=== PATIENT | female | born 1945 | race Caucasian/White ===

== ENCOUNTER 2023-11-16 05:55 | Observation (INO) | payer MEDICARE, SELFPAY ==
[2023-11-16] VITALS (15 sets, daily range): BP systolic 99–143; BP diastolic 43–79; PULSE 74–100; RESP 15–28; TEMP 36.9–37.2; O2SAT 93–100; BMI 23.0
--- NOTE | ~2023-11-16 | XR_ITS ---
EXAMINATION: XR chest 2V DATE: 11/19/2023 12:17 INDICATION: Pneumonia TECHNIQUE: PA and lateral views of the chest were obtained. COMPARISON: Chest radiograph dated 11/18/2023 FINDINGS: Again seen is an increased interstitial pattern and subtle patchy airspace opacities in the left mid and lower lung zones which appears primarily anterior to the major fissures in the upper lobes, lingu la and right middle lobe. Blunting at the bilateral posterior sulci consistent with small bilateral p leural effusions, left greater than right. There are some adjacent posterior bibasilar atelectasis. S ize is normal. Moderate thoracic and upper lumbar spondylosis with chronic mild anterior wedging of a couple mid thoracic vertebral bodies. IMPRESSION: 1. Persistent interstitial and airspace opacities in the bilateral mid to lower lungs, predominantly anteriorly most suggestive of pneumonia versus less likely atelectasis or mild pulmonary edema. 2. Small bilateral pleural effusions with mild bibasilar atelectasis. Reviewed, dictated and finalized at location A. IMPRESSION: 1. Persistent interstitial and airspace opacities in the bilateral mid to lower lungs, predominantly anteriorly most suggestive of pneumonia versus less likel y atelectasis or mild pulmonary edema. 2. Small bilateral pleural effusions with mild bibasilar atelectasis.
--- NOTE | ~2023-11-16 | XR_ITS ---
XR chest 2V Ordering provider: Ayo Morgan MD History: 78 years Female with . pneumonia . Comparison: November 16, 2023 FINDINGS: MEDIASTINUM: The cardiac silhouette is not enlarged. Prominent romelia. LUNGS: Minimal left pleural effusion. No pneumothorax. Prominent bronchovascular markings. Atelectasi s versus pneumonia in the lower lobes is not excluded. Opacification in the left perihilar area which may indicate early pneumonia. Underlying fibrotic and emphysematous changes are noted. OTHER: No free air under the diaphragm. Degenerative changes of the spine. IMPRESSION: Left pleural effusion. Prominent bilateral bronchovascular markings with Bibasilar atelectasis versus pneumonia. Opacificati on the left perihilar area suggestive of pneumonia. Reviewed, dictated and finalized at location A. IMPRESSION: Left pleural effusion. Prominent bilateral bronchovascular markings with Bibasilar atelectasis versus pneumonia. Opacification the left perihilar area suggestive of pneumonia.
--- NOTE | ~2023-11-16 | XR_ITS ---
EXAMINATION: XR chest 2V DATE: 11/16/2023 06:24 INDICATION: Right-sided chest pain. Cough. TECHNIQUE: Frontal and lateral views of the chest were obtained. COMPARISON: Chest 2 views 11/27/2011, CT abdomen and pelvis 09/25/2017 FINDINGS: There is mild scarring at the lung apices. There are patchy airspace opacities in right mid lung zone and left mid and lower lung zones. No pleural effusion or pneumothorax. The heart size is n ormal. IMPRESSION: 1. Patchy airspace opacities in right midlung zone and left mid and lower lung zones, consistent with pneumonia. Reviewed, dictated and finalized at location A.
--- NOTE | 2023-11-16 05:56 | ECG_ITS ---
Test Date: 2023-11-16 06:05:51 Measurements Intervals [place] Rate: 103 P: 5 [place]: 122 QRS: 0 QRSD: 131 T: -1 QT: 360 QTc: 473 Interpretive Statements SINUS TACHYCARDIA WITH FREQUENT ECTOPIC PREMATURE COMPLEXES RIGHT BUNDLE BRANCH BLOCK ABNORMAL ECG No previous ECG available for comparison Electronically Signed On 11-16-2023 07:45:16 CDT by Lázaro Allan D.O.
[2023-11-16 06:17] LABS: Basophils Absolute Auto 0.1 K/mm3 (0.0-0.1); Basophils Percent Auto 0.2 % (0.2-1.2); Eosinophils Absolute Auto 0.1 K/mm3 (0-0.3); Eosinophils Percent Auto 0.5 % (0-4.4); Hematocrit 40.5 % (37.0-47.0); Hemoglobin 13.6 g/dL (12.0-15.0); Immature Granulocyte Absolute 0.16 K/mm3 (0.00-0.031); Immature Granulocyte Percent A 0.7 % (0-0.5); Lymphocytes Absolute Auto 0.93 K/mm3 (0.9-3.2); Lymphocytes Percent Auto 4.3 % (18.3-44.2); Mean Corpuscular HGB Conc 33.6 g/dl (32-36); Mean Corpuscular Hemoglobin 31.3 pg (26-34); Mean Corpuscular Volume 93.1 fl (80-100); Mean Platelet Volume 8.9 fl (7.4-10.4); Monocytes Absolute Auto 1.4 K/mm3 (0.1-0.6); Monocytes Percent Auto 6.6 % (2.6-8.5); Neutrophils Absolute Auto 18.9 K/mm3 (1.3-6.7); Neutrophils Percent Auto 87.7 % (45.5-73.1); Platelet Count Result 204 k/mm3 (150-375); Red Blood Count 4.35 M/mm3 (4.2-5.4); Red Cell Distribution Width 13.2 % (11.5-14.5); White Blood Count 21.6 K/mm3 (4.5-10.0)
[2023-11-16 06:29] LABS: Alanine Aminotransferase 51 U/L (6-35); Albumin Level 3.8 g/dL (3.5-5.1); Alkaline Phosphatase 105 U/L (38-126); Anion Gap 10 mmol/L (4-12); Aspartate Amino Transferase 48 U/L (14-36); Bilirubin,Total 0.9 mg/dL (0.2-1.3); Blood Urea Nitrogen 14 mg/dL (7-17); Calcium 9.1 mg/dL (8.4-10.2); Carbon Dioxide 23 mmol/L (22-30); Chloride 104 mmol/L (98-107); Estimated CRCL calculation 48 ml/min; Estimated Glomerular Filt Rate > 60; Glucose 134 mg/dL (65-110); Lipase 58 U/L (23-300); Potassium 3.9 mmol/L (3.4-5.0); Sodium 137 mmol/L (137-145)
[2023-11-16 06:38] LABS: INR 1.1; Prothrombin Time 14.9 Seconds (11.1-14.7)
[2023-11-16 06:39] LABS: Partial Thromboplastin Time 27.5 Seconds (22.3-36.8)
[2023-11-16 06:40] LABS: Troponin I < 0.012 ng/mL (0.000-0.034)
[2023-11-16 06:58] LABS: Platelet Estimate Adequate (Adequate); Schistocytes None Seen
[2023-11-16 07:47] LABS: Lactic Acid Reflex 0.7 mmol/L (0.7-2.0)
--- NOTE | 2023-11-16 07:48 | ED.GENADULT ---
HPI - General Adult General Chief complaint: Chest Pain Stated complaint: fever, cough, right chest pain, nausea Time Seen by Provider: 11/16/23 06:56 History of Present Illness HPI narrative: Patient is a 78-year-old female who presents ER with right-sided chest discomfort. Ongoing over last day. Low-grade fever for the last 3 days. Occasional cough. No exertional discomfort. No runny nose or sore throat or productive cough. No known sick contacts. Pain is worse with deep breath and with certain movements. No alleviating factors. Related Data Home Medications Medication Instructions Recorded Confirmed cholecalciferol (vitamin D3) 25 75 mcg PO DAILY 11/16/23 11/16/23 mcg (1,000 unit) capsule (Vitamin D3) omega-3 fatty acids 1,000 mg PO DAILY 11/16/23 11/16/23 Allergies Allergy/AdvReac Type Severity Reaction Status Date / Time Sulfa (Sulfonamide Allergy Unknown Verified 11/13/15 18:11 Antibiotics) PROPOXYPHENE NAPSYLATE Allergy Unknown Uncoded 11/13/15 18:11 Review of Systems Review of Systems: All systems reviewed & are unremarkable except as noted in HPI and below Constitutional: Constitutional: Denies chills, Reports fatigue and Reports fever(s) ENT: Reports system reviewed and no additional complaints, except as documented Cardiovascular: Cardiovascular: Reports chest pain, Denies rapid heart rate and Denies radiating jaw, neck or arm pain Respiratory: Respiratory: Denies chest congestion, Reports cough and Denies dyspnea Gastrointestinal: Gastrointestinal: Reports no additional gastrointestinal complaints Genitourinary: Genitourinary: Reports no additional female genitourinary complaints [facility] Past Medical History Medical History (Updated 11/16/23 @ 14:59 by Dwight Gomez MD) Healthy female adult Surgical History Surgical History (Updated 11/16/23 @ 07:50 by Dwight Gomez MD) History of tonsillectomy Social History Social History Smoking status: Former smoker Alcohol intake: current Drinks per week: 6 Substance use: never Do You Feel Safe in your Home?: Yes Lack of Transportation: No Lack of Food: Never True Current Housing: I Have Housing Concerned About Future Housing: No Difficulty Paying Gas/Electric Bills: No Difficulty Paying for Meds: No Currently Unemployed: No Education: Bachelor's Degree Difficulty w/ Childcare or Family Care: No Spiritual care concerns: No Exam Narrative: GENERAL: Well-appearing, well-nourished, and in no acute distress. HEAD: Normocephalic, atraumatic. ENT: Mucous membranes moist. CHEST: Mild crackles right midlung zone. No respiratory distress. HEART: Regular rate and rhythm. Normal peripheral pulses. ABDOMEN: Soft, nontender, nondistended. EXTREMITIES: Normal range of motion. No edema. SKIN: Warm, dry, no rash. NEURO: Alert and oriented x3. PSYCH: Normal mood and affect. Course Course Emergency Course: Curb 65 score of 2. Patient with tachypnea into the 30s as well as 1 point for age, significant leukocytosis. Discussed admission for observation and IV antibiotics and patient agreeable. Vital Signs Vital signs: Vital Signs Pulse Rate 94 11/16/23 06:02 Respiratory Rate 15 11/16/23 06:02 Blood Pressure 134/60 11/16/23 06:02 Pulse Oximetry 97 11/16/23 06:02 Oxygen Delivery Room Air 11/16/23 06:02 Temperature 98.9 F 11/16/23 12:00 Pulse Rate 81 11/16/23 13:33 Respiratory Rate 16 11/16/23 13:33 Blood Pressure 129/55 L 11/16/23 12:00 Pulse Oximetry 99 11/16/23 12:00 Oxygen Delivery Room Air 11/16/23 12:00 Medical Decision Making Vital Signs Vital Signs: Vital Signs Pulse Rate 94 11/16/23 06:02 Respiratory Rate 15 11/16/23 06:02 Blood Pressure 134/60 11/16/23 06:02 Pulse Oximetry 97 11/16/23 06:02 Oxygen Delivery Room Air 11/16/23 06:02 Temperature 98.9 F 11/16/23 12:00 Pulse Rate 81 11/16/23 13:3
[2023-11-16] MEDS: AZITHROMYCIN 500 MG/NS 250 ML 500 MG/250 ML BAG 250 MG IVPB (07:57)
[2023-11-16] MEDS: SODIUM CHLORIDE 0.9% IV 1,000 ML 100 ML IV CONT (08:44)
--- NOTE | 2023-11-16 08:50 | PC.NURSE ---
Ordered breakfast tray for pt.
[2023-11-16 09:25] LABS: Troponin I < 0.012 ng/mL (0.000-0.034)
--- NOTE | 2023-11-16 09:34 | PC.NURSE ---
This patient, Pattie Alonso, was admitted to 2 Medical Room 255-. Patient/family oriented to hospital policies and general routines including ID bracelet, bed and alarms, visiting hours, pain management, procedures, bathroom and other care routines, personal items, smoking policy, room service/diet, and visiting hours. Information on how to activate the Rapid Response Team has been discussed. Patient/Family are encouraged to report perceived risks to care and to ask questions if they do not understand what they are told or what they should do.
[2023-11-16] MEDS: IPRATROPIUM 0.5 MG/ALBUTEROL SULFATE 2.5 MG AMPUL.NEB 3 ML INHALATION ×2 (13:22→22:01)
[2023-11-16 14:29] LABS: Troponin I < 0.012 ng/mL (0.000-0.034)
[2023-11-16] MEDS: HYDROcodone/acetaminophen (*CRX) 5-325 MG TABLET 1 TAB PO ×2 (14:38→22:39)
--- NOTE | 2023-11-16 16:07 | PM.IMHP ---
H&P: HPI History of Present Illness Date/Time: 11/16/23 16:07 Chief Complaint: shortness of breath Narrative: HPI: patient is 78 y/o without any significant medical history stats for few days she felt feverish and congested with some cough, patient denies any significant fever or chills, she denies any sick contact, stats she is up to date on all her immunization including she took pneumonia vaccine couple of years ago. to further evaluate patient had chest x-ray which showed Patchy airspace opacities in right midlung zone and left mid and lower lung zones, consistent with pneumonia,most likely patient has community acquired pneumonia, patient is being treated with zithromax and ceftriaxone, will monitor, will repeat CXR in 2 days and further recommendation to follow. patient is admitted as inpatient for CAP Review of Systems Review of Systems: All systems reviewed & are unremarkable except as noted in HPI and below PMFSH Past Medical History Medical History (Updated 11/16/23 @ 16:17 by Ayo Morgan MD) Healthy female adult Surgical History Surgical History (Updated 11/16/23 @ 07:50 by Dwight Gomez MD) History of tonsillectomy Social History Social History Smoking status: Former smoker Alcohol intake: current Drinks per week: 6 Substance use: never Do You Feel Safe in your Home?: Yes Lack of Transportation: No Lack of Food: Never True Current Housing: I Have Housing Concerned About Future Housing: No Difficulty Paying Gas/Electric Bills: No Difficulty Paying for Meds: No Currently Unemployed: No Education: Bachelor's Degree Difficulty w/ Childcare or Family Care: No Spiritual care concerns: No Meds Home Medications and Allergies Home Medications Medication Instructions Recorded Confirmed Type cholecalciferol (vitamin D3) 25 75 mcg PO DAILY 11/16/23 11/16/23 History mcg (1,000 unit) capsule (Vitamin D3) omega-3 fatty acids 1,000 mg PO DAILY 11/16/23 11/16/23 History Allergies Allergy/AdvReac Type Severity Reaction Status Date / Time Sulfa (Sulfonamide Allergy Unknown Verified 11/13/15 18:11 Antibiotics) PROPOXYPHENE NAPSYLATE Allergy Unknown Uncoded 11/13/15 18:11 Vital Signs Vital Signs - 24 hr 11/16/23 06:02 11/16/23 06:06 11/16/23 06:07 Temperature Pulse Rate 94 100 Respiratory Rate 15 Blood Pressure 134/60 Pulse Oximetry 97 100 Oxygen Delivery Room Air Room Air 11/16/23 06:17 11/16/23 06:17 11/16/23 07:03 Temperature Pulse Rate 96 81 Respiratory Rate 19 25 H Blood Pressure 117/79 143/70 H Pulse Oximetry 93 93 93 Oxygen Delivery Room Air 11/16/23 06:47 11/16/23 08:30 11/16/23 09:39 Temperature 36.9 C Pulse Rate 84 74 86 Respiratory Rate 28 H 19 18 Blood Pressure 134/63 119/54 L 113/43 L Pulse Oximetry 94 97 96 Oxygen Delivery 11/16/23 09:45 11/16/23 12:00 11/16/23 12:00 Temperature 37.2 C Pulse Rate 78 Respiratory Rate 18 Blood Pressure 129/55 L Pulse Oximetry 99 99 Oxygen Delivery Room Air Room Air 11/16/23 13:25 11/16/23 13:33 Temperature Pulse Rate 83 81 Respiratory Rate 16 16 Blood Pressure Pulse Oximetry Oxygen Delivery Exam Narrative: General: patient is comfortable NAD HEENT: eyes are clear nonicteric, normocephalic, atraumatic. Oral mucosa moist. HEART: RR S1S2 LUNGS:b/l fair air entry with rhonchi ABD: BS+, diffusely tender. SKIN: no obvious rash EXTREMITIES: no edema NEURO:A&O grossly intact PSYCH: Pleasant and cooperative with normal mood and affect H&P: Results Labs Labs: Short CBC 11/16/23 Range/Units 06:08 WBC 21.6 H (4.5-10.0) K/mm3 Hgb 13.6 (12.0-15.0) g/dL Hct 40.5 (37.0-47.0) % Plt Count 204 (150-375) k/mm3 [facility] 11/16/23 06:08 Sodium 137 Potassium 3.9 Chloride 104 Carbon Dioxide 23 BUN 14 Creatinine 0.80 Glucose 134 H Calcium 9.1 Cardiac Enzymes 07
[2023-11-17] VITALS (17 sets, daily range): BP systolic 116–135; BP diastolic 37–62; PULSE 60–96; RESP 16–19; TEMP 36.5–38.8; O2SAT 92–97
[2023-11-17 05:20] LABS: Hematocrit 36.1 % (37.0-47.0); Hemoglobin 11.6 g/dL (12.0-15.0); Mean Corpuscular HGB Conc 32.1 g/dl (32-36); Mean Corpuscular Hemoglobin 30.8 pg (26-34); Mean Corpuscular Volume 95.8 fl (80-100); Mean Platelet Volume 9.4 fl (7.4-10.4); Platelet Count Result 181 k/mm3 (150-375); Red Blood Count 3.77 M/mm3 (4.2-5.4); Red Cell Distribution Width 13.5 % (11.5-14.5)
[2023-11-17 05:39] LABS: Magnesium 2.2 mg/dL (1.6-2.3)
[2023-11-17] MEDS: AZITHROMYCIN 500 MG/NS 250 ML 500 MG/250 ML BAG 250 MG IVPB (06:38)
[2023-11-17] MEDS: IPRATROPIUM 0.5 MG/ALBUTEROL SULFATE 2.5 MG AMPUL.NEB 3 ML INHALATION ×3 (07:26→20:59)
[2023-11-17 08:49] LABS: Anion Gap 3 mmol/L (4-12); Blood Urea Nitrogen 8 mg/dL (7-17); Calcium 8.6 mg/dL (8.4-10.2); Carbon Dioxide 25 mmol/L (22-30); Chloride 107 mmol/L (98-107); Estimated CRCL calculation 65 ml/min; Estimated Glomerular Filt Rate > 60; Glucose 94 mg/dL (65-110); Potassium 3.7 mmol/L (3.4-5.0); Sodium 135 mmol/L (137-145)
[2023-11-17] MEDS: CHOLECALCIFEROL 1,000 UNITS TABLET 3000 UNITS PO (09:57)
[2023-11-17] MEDS: OMEGA 3 POLYUNSAT FATTY ACIDS 1 GM CAP PO (09:58)
--- NOTE | 2023-11-17 11:47 | WPDPN ---
Progress Note: A&P Assessment and Plan (1) CAP (community acquired pneumonia): Code(s): J18.9 - Pneumonia, unspecified organism Status: Acute (2) Leukocytosis: Code(s): D72.829 - Elevated white blood cell count, unspecified Status: Acute Plan HPI: patient is 78 y/o without any significant medical history stats for few days she felt feverish and congested with some cough, patient denies any significant fever or chills, she denies any sick contact, stats she is upto date on all her immunization including she took pneumonia vaccine couple of years ago. to further evaluate patient had chest x-ray which showed Patchy airspace opacities in right midlung zone and left mid and lower lung zones, consistent with pneumonia,most likely patient has community acquired pneumonia, patient is being treated with zithromax and ceftriaxone, will monitor, will repeat CXR in 2 days and further recommendation to follow. Interval history 11/17/2023, patient stats feeling little better but still feel feverish, will repeat chest x-ray in the monrining and reassess and plan. Subjective Date/time seen: 11/17/23 11:47 Interval history: HPI: patient is 78 y/o without any significant medical history stats for few days she felt feverish and congested with some cough, patient denies any significant fever or chills, she denies any sick contact, stats she is upto date on all her immunization including she took pneumonia vaccine couple of years ago. to further evaluate patient had chest x-ray which showed Patchy airspace opacities in right midlung zone and left mid and lower lung zones, consistent with pneumonia,most likely patient has community acquired pneumonia, patient is being treated with zithromax and ceftriaxone, will monitor, will repeat CXR in 2 days and further recommendation to follow. Interval history 11/17/2023, patient stats feeling little better but still feel feverish, will repeat chest x-ray in the monrining and reassess and plan. Review of Systems Review of Systems: All systems reviewed & are unremarkable except as noted in HPI and below Exam Narrative: General: patient is comfortable NAD HEENT: eyes are clear nonicteric, normocephalic, atraumatic. Oral mucosa moist. HEART: RR S1S2 LUNGS:b/l fair air entry with rhonchi ABD: BS+, diffusely tender. SKIN: no obvious rash EXTREMITIES: no edema NEURO:A&O grossly intact PSYCH: Pleasant and cooperative with normal mood and affect Objective Data Vital Signs Vital Signs: Vital Signs - 24 hr 11/16/23 12:00 11/16/23 12:00 11/16/23 13:25 Temperature 37.2 C Pulse Rate 78 83 Respiratory Rate 18 16 Blood Pressure 129/55 L Pulse Oximetry 99 99 Oxygen Delivery Room Air 11/16/23 13:33 11/16/23 16:00 11/16/23 19:30 Temperature 37.2 C 37.2 C Pulse Rate 81 85 86 Respiratory Rate 16 20 18 Blood Pressure 130/49 L 99/61 L Pulse Oximetry 93 94 Oxygen Delivery 11/16/23 22:01 11/16/23 22:11 11/17/23 00:00 Temperature 36.5 C Pulse Rate 77 78 80 Respiratory Rate 16 16 18 Blood Pressure 116/37 L Pulse Oximetry 94 Oxygen Delivery 11/16/23 20:40 11/17/23 04:00 11/17/23 07:26 Temperature 37.5 C Pulse Rate 60 84 Respiratory Rate 18 16 Blood Pressure 120/40 L Pulse Oximetry 92 Oxygen Delivery Room Air 11/17/23 07:40 11/17/23 08:00 Temperature 36.8 C Pulse Rate 84 72 Respiratory Rate 16 19 Blood Pressure 124/52 L Pulse Oximetry 92 Oxygen Delivery Intake/Output Intake/Output: Intake & Output 11/14/23 11/15/23 11/16/23 11/17/23 23:59 23:59 23:59 23:59 Intake Total 2220 420 Output Total 0 Balance 2220 420 Meds/Results Medications: Active Medications Generic Name Dose Route Start Last Admin Trade Name Freq PRN Reason Stop Dose Admin Acetaminophen 650 mg 11/16/23 08:01 Acetaminophen 325 Mg Tablet PO Q4H PRN Mild Pain (1-3) or Fever Hydrocodone Bitart/Acetamino
[2023-11-17] MEDS: ACETAMINOPHEN 325 MG TABLET 650 MG PO ×2 (13:15→18:04)
[2023-11-17 18:34] LABS: IFOB Positive Control Positive; Immunochemical Fecal Occult Bl Negative (N)
[2023-11-18] VITALS (11 sets, daily range): BP systolic 118–139; BP diastolic 45–62; PULSE 80–96; RESP 16–18; TEMP 36.7–37.3; O2SAT 94–97
[2023-11-18 05:07] LABS: Hematocrit 37.6 % (37.0-47.0); Hemoglobin 12.1 g/dL (12.0-15.0); Mean Corpuscular HGB Conc 32.2 g/dl (32-36); Mean Corpuscular Hemoglobin 30.6 pg (26-34); Mean Corpuscular Volume 95.2 fl (80-100); Mean Platelet Volume 9.1 fl (7.4-10.4); Platelet Count Result 204 k/mm3 (150-375); Red Blood Count 3.95 M/mm3 (4.2-5.4); Red Cell Distribution Width 13.3 % (11.5-14.5); White Blood Count 14.8 K/mm3 (4.5-10.0)
[2023-11-18 05:19] LABS: Anion Gap 6 mmol/L (4-12); Blood Urea Nitrogen 6 mg/dL (7-17); Calcium 8.5 mg/dL (8.4-10.2); Carbon Dioxide 28 mmol/L (22-30); Chloride 102 mmol/L (98-107); Estimated CRCL calculation 65 ml/min; Estimated Glomerular Filt Rate > 60; Glucose 108 mg/dL (65-110); Magnesium 2.2 mg/dL (1.6-2.3); Potassium 3.7 mmol/L (3.4-5.0); Sodium 136 mmol/L (137-145)
[2023-11-18] MEDS: AZITHROMYCIN 500 MG/NS 250 ML 500 MG/250 ML BAG 250 MG IVPB (06:39)
[2023-11-18] MEDS: IPRATROPIUM 0.5 MG/ALBUTEROL SULFATE 2.5 MG AMPUL.NEB 3 ML INHALATION ×3 (09:02→20:53)
[2023-11-18] MEDS: OMEGA 3 POLYUNSAT FATTY ACIDS 1 GM CAP PO (09:09)
[2023-11-18] MEDS: CHOLECALCIFEROL 1,000 UNITS TABLET 3000 UNITS PO (09:09)
--- NOTE | 2023-11-18 15:35 | WPDPN ---
Progress Note: A&P Assessment and Plan (1) CAP (community acquired pneumonia): Code(s): J18.9 - Pneumonia, unspecified organism Status: Acute (2) Leukocytosis: Code(s): D72.829 - Elevated white blood cell count, unspecified Status: Acute Plan HPI: patient is 78 y/o without any significant medical history stats for few days she felt feverish and congested with some cough, patient denies any significant fever or chills, she denies any sick contact, stats she is upto date on all her immunization including she took pneumonia vaccine couple of years ago. to further evaluate patient had chest x-ray which showed Patchy airspace opacities in right midlung zone and left mid and lower lung zones, consistent with pneumonia,most likely patient has community acquired pneumonia, patient is being treated with zithromax and ceftriaxone, will monitor, will repeat CXR in 2 days and further recommendation to follow. Interval history 11/17/2023, patient stats feeling little better but still feel feverish, will repeat chest x-ray in the morning and reassess and plan. Interval history 11/18/2023, patient stats feeling little better but still feel feverish and some congestion, repeat x-ray showed persist pneumonia will continue abx and recheck x-ray in 2 days further recommendation to follow. Subjective Date/time seen: 11/18/23 15:35 Interval history: HPI: patient is 78 y/o without any significant medical history stats for few days she felt feverish and congested with some cough, patient denies any significant fever or chills, she denies any sick contact, stats she is upto date on all her immunization including she took pneumonia vaccine couple of years ago. to further evaluate patient had chest x-ray which showed Patchy airspace opacities in right midlung zone and left mid and lower lung zones, consistent with pneumonia,most likely patient has community acquired pneumonia, patient is being treated with zithromax and ceftriaxone, will monitor, will repeat CXR in 2 days and further recommendation to follow. Interval history 11/17/2023, patient stats feeling little better but still feel feverish, will repeat chest x-ray in the monrining and reassess and plan. Interval history 11/18/2023, patient stats feeling little better but still feel feverish and some congestion, repeat x-ray showed persist pneumonia will continue abx and recheck x-ray in 2 days further recommendation to follow. Review of Systems Review of Systems: All systems reviewed & are unremarkable except as noted in HPI and below Exam Narrative: General: patient is comfortable NAD HEENT: eyes are clear nonicteric, normocephalic, atraumatic. Oral mucosa moist. HEART: RR S1S2 LUNGS:b/l fair air entry with rhonchi ABD: BS+, diffusely tender. SKIN: no obvious rash EXTREMITIES: no edema NEURO:A&O grossly intact PSYCH: Pleasant and cooperative with normal mood and affect Objective Data Vital Signs Vital Signs: Vital Signs - 24 hr 11/17/23 18:04 11/17/23 16:00 11/17/23 20:00 Temperature 37.6 C 37.2 C 37.8 C H Pulse Rate 80 86 Respiratory Rate 18 18 Blood Pressure 132/62 135/56 L Pulse Oximetry 94 97 Oxygen Delivery 11/17/23 21:01 11/17/23 21:09 11/17/23 19:40 Temperature Pulse Rate 83 85 Respiratory Rate 16 16 Blood Pressure Pulse Oximetry Oxygen Delivery Room Air 11/17/23 23:46 11/18/23 03:42 11/18/23 09:02 Temperature 37.3 C 37.3 C Pulse Rate 88 83 94 Respiratory Rate 18 18 16 Blood Pressure 130/54 L 132/62 Pulse Oximetry 97 97 Oxygen Delivery 11/18/23 09:07 11/18/23 11:13 11/18/23 09:10 Temperature 36.7 C Pulse Rate 89 80 Respiratory Rate 16 16 Blood Pressure 118/45 L Pulse Oximetry 94 Oxygen Delivery Room Air 11/18/23 14:34 Temperature Pulse Rate 85 Respiratory Rate 16 Blood Pressure Pulse Oximetry Oxygen Delivery Intake/Output Intake/Output: Intake & Output
[2023-11-18] MEDS: HYDROcodone/acetaminophen (*CRX) 5-325 MG TABLET 1 TAB PO (23:02)
[2023-11-19] VITALS (15 sets, daily range): BP systolic 116–140; BP diastolic 48–70; PULSE 84–108; RESP 16–20; TEMP 36.1–37.1; O2SAT 91–96
[2023-11-19] MEDS: IPRATROPIUM 0.5 MG/ALBUTEROL SULFATE 2.5 MG AMPUL.NEB 3 ML INHALATION ×4 (01:27→20:59)
[2023-11-19 05:04] LABS: Hematocrit 34.9 % (37.0-47.0); Hemoglobin 11.4 g/dL (12.0-15.0); Mean Corpuscular HGB Conc 32.7 g/dl (32-36); Mean Corpuscular Volume 94.8 fl (80-100); Mean Platelet Volume 8.7 fl (7.4-10.4); Platelet Count Result 231 k/mm3 (150-375); Red Blood Count 3.68 M/mm3 (4.2-5.4); Red Cell Distribution Width 13.2 % (11.5-14.5); White Blood Count 11.6 K/mm3 (4.5-10.0)
[2023-11-19 05:11] LABS: Anion Gap 5 mmol/L (4-12); Blood Urea Nitrogen 7 mg/dL (7-17); Calcium 8.7 mg/dL (8.4-10.2); Carbon Dioxide 28 mmol/L (22-30); Chloride 104 mmol/L (98-107); Estimated CRCL calculation 65 ml/min; Estimated Glomerular Filt Rate > 60; Glucose 120 mg/dL (65-110); Potassium 3.6 mmol/L (3.4-5.0); Sodium 137 mmol/L (137-145)
[2023-11-19 05:28] LABS: Magnesium 2.2 mg/dL (1.6-2.3)
[2023-11-19] MEDS: AZITHROMYCIN 500 MG/NS 250 ML 500 MG/250 ML BAG 250 MG IVPB (06:23)
[2023-11-19] MEDS: CHOLECALCIFEROL 1,000 UNITS TABLET 3000 UNITS PO (08:59)
[2023-11-19] MEDS: OMEGA 3 POLYUNSAT FATTY ACIDS 1 GM CAP PO (08:59)
--- NOTE | 2023-11-19 10:13 | WPDPN ---
Progress Note: A&P Assessment and Plan (1) CAP (community acquired pneumonia): Code(s): J18.9 - Pneumonia, unspecified organism Status: Acute (2) Leukocytosis: Code(s): D72.829 - Elevated white blood cell count, unspecified Status: Acute Plan HPI: patient is 78 y/o without any significant medical history stats for few days she felt feverish and congested with some cough, patient denies any significant fever or chills, she denies any sick contact, stats she is upto date on all her immunization including she took pneumonia vaccine couple of years ago. to further evaluate patient had chest x-ray which showed Patchy airspace opacities in right midlung zone and left mid and lower lung zones, consistent with pneumonia,most likely patient has community acquired pneumonia, patient is being treated with zithromax and ceftriaxone, will monitor, will repeat CXR in 2 days and further recommendation to follow. Interval history 11/17/2023, patient stats feeling little better but still feel feverish, will repeat chest x-ray in the morning and reassess and plan. Interval history 11/18/2023, patient stats feeling little better but still feel feverish and some congestion, repeat x-ray showed persist pneumonia will continue abx and recheck x-ray in 2 days further recommendation to follow. Interval history 11/19/2023, patient stats feeling little better but still feel feverish and some congestion, repeat x-ray on 11/17 showed persist pneumonia will continue abx and recheck x-ray tomorrow further recommendation to follow. Subjective Date/time seen: 11/19/23 10:13 Interval history: HPI: patient is 78 y/o without any significant medical history stats for few days she felt feverish and congested with some cough, patient denies any significant fever or chills, she denies any sick contact, stats she is upto date on all her immunization including she took pneumonia vaccine couple of years ago. to further evaluate patient had chest x-ray which showed Patchy airspace opacities in right midlung zone and left mid and lower lung zones, consistent with pneumonia,most likely patient has community acquired pneumonia, patient is being treated with zithromax and ceftriaxone, will monitor, will repeat CXR in 2 days and further recommendation to follow. Interval history 11/17/2023, patient stats feeling little better but still feel feverish, will repeat chest x-ray in the monrining and reassess and plan. Interval history 11/18/2023, patient stats feeling little better but still feel feverish and some congestion, repeat x-ray showed persist pneumonia will continue abx and recheck x-ray in 2 days further recommendation to follow. Interval history 11/19/2023, patient stats feeling little better but still feel feverish and some congestion, repeat x-ray on 11/17 showed persist pneumonia will continue abx and recheck x-ray tomorrow further recommendation to follow. Review of Systems Review of Systems: All systems reviewed & are unremarkable except as noted in HPI and below Exam Narrative: General: patient is comfortable NAD HEENT: eyes are clear nonicteric, normocephalic, atraumatic. Oral mucosa moist. HEART: RR S1S2 LUNGS:b/l fair air entry with rhonchi ABD: BS+, diffusely tender. SKIN: no obvious rash EXTREMITIES: no edema NEURO:A&O grossly intact PSYCH: Pleasant and cooperative with normal mood and affect Objective Data Vital Signs Vital Signs: Vital Signs - 24 hr 11/18/23 11:13 11/18/23 14:34 11/18/23 15:07 Temperature 36.7 C 36.8 C Pulse Rate 80 85 86 Respiratory Rate 16 16 16 Blood Pressure 118/45 L 119/59 L Pulse Oximetry 94 95 Oxygen Delivery 11/18/23 18:17 11/18/23 19:31 11/18/23 20:53 Temperature 36.7 C 36.9 C Pulse Rate 84 89 88 Respiratory Rate 16 17 18 Blood Pressure 134/54 L 139/57 L Pulse Oximetry 96 95 Oxygen Delivery 11/18/23 21:07 11/18/23 23:55 11/18/23 21:45 Temperature
[2023-11-19] MEDS: ACETAMINOPHEN 325 MG TABLET 650 MG PO ×2 (13:58→22:00)
[2023-11-20] MEDS: IPRATROPIUM 0.5 MG/ALBUTEROL SULFATE 2.5 MG AMPUL.NEB 3 ML INHALATION ×2 (02:21→08:04)
[2023-11-20 02:23] VITALS: PULSE 91; RESP 20
[2023-11-20 02:30] VITALS: PULSE 81; RESP 20
[2023-11-20 03:46] VITALS: BP 129/46; PULSE 86; RESP 17; TEMP 36.5; O2SAT 95
[2023-11-20 05:59] LABS: Hematocrit 38.2 % (37.0-47.0); Hemoglobin 12.3 g/dL (12.0-15.0); Mean Corpuscular HGB Conc 32.2 g/dl (32-36); Mean Corpuscular Hemoglobin 30.6 pg (26-34); Mean Platelet Volume 8.6 fl (7.4-10.4); Platelet Count Result 282 k/mm3 (150-375); Red Blood Count 4.02 M/mm3 (4.2-5.4); Red Cell Distribution Width 13.2 % (11.5-14.5); White Blood Count 9.7 K/mm3 (4.5-10.0)
[2023-11-20 06:15] LABS: Anion Gap 8 mmol/L (4-12); Blood Urea Nitrogen 8 mg/dL (7-17); Calcium 9.3 mg/dL (8.4-10.2); Carbon Dioxide 30 mmol/L (22-30); Chloride 103 mmol/L (98-107); Estimated CRCL calculation 65 ml/min; Estimated Glomerular Filt Rate > 60; Glucose 106 mg/dL (65-110); Magnesium 2.2 mg/dL (1.6-2.3); Potassium 3.6 mmol/L (3.4-5.0); Sodium 141 mmol/L (137-145)
[2023-11-20 08:00] VITALS: BP 147/65; PULSE 84; RESP 12; TEMP 36.2; O2SAT 96
[2023-11-20 08:05] VITALS: PULSE 84; RESP 20; O2SAT 95
[2023-11-20] MEDS: OMEGA 3 POLYUNSAT FATTY ACIDS 1 GM CAP PO (08:10)
[2023-11-20] MEDS: CHOLECALCIFEROL 1,000 UNITS TABLET 3000 UNITS PO (08:10)
[2023-11-20] MEDS: AZITHROMYCIN 250 MG TABLET 500 MG PO (08:10)
[2023-11-20] MEDS: AMOXICILLIN/CLAVULANATE K 875-125 MG TAB 1 TABLET PO (08:11)
[2023-11-20] MEDS: ACETAMINOPHEN 325 MG TABLET 650 MG PO (08:13)
[2023-11-20 08:14] VITALS: PULSE 88; RESP 20
--- NOTE | 2023-11-20 10:07 | PM.DS ---
DS: Admitting Diagnosis Discharge Date 11/20/2023 Admitting Diagnosis shortness of breath DS: Discharge Diagnosis Discharge Diagnosis (1) CAP (community acquired pneumonia): Code(s): J18.9 - Pneumonia, unspecified organism Status: Acute (2) Leukocytosis: Code(s): D72.829 - Elevated white blood cell count, unspecified Status: Acute (3) Pneumonia: Code(s): J18.9 - Pneumonia, unspecified organism Status: Acute DS: Summary Hospital Course Hospital Course: HPI: patient is 78 y/o without any significant medical history stats for few days she felt feverish and congested with some cough, patient denies any significant fever or chills, she denies any sick contact, stats she is upto date on all her immunization including she took pneumonia vaccine couple of years ago. to further evaluate patient had chest x-ray which showed Patchy airspace opacities in right midlung zone and left mid and lower lung zones, consistent with pneumonia,most likely patient has community acquired pneumonia, patient is being treated with zithromax and ceftriaxone, will monitor, will repeat CXR in 2 days and further recommendation to follow. Interval history 11/17/2023, patient stats feeling little better but still feel feverish, will repeat chest x-ray in the morning and reassess and plan. Interval history 11/18/2023, patient stats feeling little better but still feel feverish and some congestion, repeat x-ray showed persist pneumonia will continue abx and recheck x-ray in 2 days further recommendation to follow. Interval history 11/19/2023, patient stats feeling little better but still feel feverish and some congestion, repeat x-ray on 11/17 showed persist pneumonia will continue abx and recheck x-ray tomorrow further recommendation to follow. today patient feels better her white counts are tending down, will discharge patient on abx, and follow up with PCP, patient will need a repeat chest x-ray in 2-4 weeks to check improvement in her lungs. Time Spent with Patient Time attestation: Total time spent providing and/or coordinating discharge services: Exam Narrative: General: patient is comfortable NAD HEENT: eyes are clear nonicteric, normocephalic, atraumatic. Oral mucosa moist. HEART: RR S1S2 LUNGS:b/l fair air entry with rhonchi ABD: BS+, diffusely tender. SKIN: no obvious rash EXTREMITIES: no edema NEURO:A&O grossly intact PSYCH: Pleasant and cooperative with normal mood and affect DS: Data Data Completed and Pending Labs on day of discharge: Labs from last 24 hours 11/20/23 05:38 WBC 9.7 RBC 4.02 L Hgb 12.3 Hct 38.2 MCV 95.0 MCH 30.6 MCHC 32.2 RDW 13.2 Plt Count 282 MPV 8.6 Sodium 141 Potassium 3.6 Chloride 103 Carbon Dioxide 30 Anion Gap 8 BUN 8 Creatinine 0.60 L Estim Creat Clear Calc 65 Estimated GFR > 60 Glucose 106 Calcium 9.3 Magnesium 2.2 Preliminary micro results at discharge 11/16/23 07:30 Blood Culture - Preliminary Blood 11/16/23 07:30 Blood Culture - Preliminary Blood Discharge Plan Discharge Attending physician on discharge: Laurie Connor Consulting providers: Lázaro Allan; Rudi Hopkins V.; Richard Berg; Salomón Cain Discharging Clinician: Ayo Morgan Patient Disposition: Home, Self-Care Activity: as tolerated Diet: heart healthy Discharge Instructions: Patient is instructed will need repeat chest x-ray in 4 weeks to check her pneumonia is resolving, patient to follow up with her primary care provider as soon as possible, patient is instructed if any symptoms worsen to go to nearest ER. Patient Instructions: Antibiotic Form Stand Alone Forms: General Discharge Information Follow-up/Referrals: PHYSICIAN NOT ON STAFF,NONSTAFF [Primary Care Provider] - Discharge Medications: Continued omega-3 fatty acids Capsule 1,000 mg PO DAILY cholecalciferol (vitamin
== END 2023-11-20 11:33 | disposition home or self-care (01) ==
LOC: ANHED 07:11 → ANH2MED 09:20
PROVIDERS: Student in an Organized Health Care Education/Training Program; Admitting Provider Family Medicine; Emergency Provider Emergency Medicine; Visit Provider Nurse Practitioner Family
DX: J18.9 Pneumonia, unspecified organism (principal); R07.9 Chest pain, unspecified; Z87.891 Personal history of nicotine dependence
CPT/HCPCS: 36415; 71046; 80048; 80053; 82274; 83605; 83690; 83735; 84484; 85025; 85027; 85610; 85730; 87040; 93005; 94640; 96361; 96365; 96366; 99285; A9270; G0378; J0456; J0696; J7030

== ENCOUNTER 2025-04-01 14:15 | Outpatient (CLI) | payer MEDICARE, SELFPAY ==
--- NOTE | 2025-04-01 | ECG_ITS ---
Test Date: 2025-04-01 14:38:33 Measurements Intervals Collins Rate: 80 P: 66 NH: 132 QRS: 17 QRSD: 130 T: 60 QT: 406 QTc: 471 Interpretive Statements SINUS RHYTHM POSSIBLE LEFT ATRIAL ENLARGEMENT [-0.1mV P-WAVE IN V1/V2] RIGHT BUNDLE BRANCH BLOCK [120+ ms QRS DURATION, UPRIGHT V1, 40+ ms S IN I/aVL/V4/V5/V6] Compared to ECG 11/16/2023 06:05:51 Sinus tachycardia no longer present Electronically Signed On 04-01-2025 14:51:19 [employer] by Óscar Klein M.D.
--- OUTSIDE RECORDS SUMMARY | 2025-04-01 17:29 | XMS_ITS | Clinical Summary ---
Author Organization [facility] Address [address] [place] [address] Care Team Providers Care Long Term Care Administrator Name Role Phone Gareth Mccrary MD Unavailable [phone] Sudhir Sheets MD PhD Unavailable [phone] Roula Kenny MD Primary Care Provider [phone] Allergies Active Allergy Reactions Criticality Noted Date Comments Propoxyphene-Acetaminophen Dizziness,Nausea only Low Sulfa (Sulfonamide Antibiotics) Diarrhea Low Medications multivitamin with minerals capsuleIndicatio ns:Mineral Deficiency Prevention,Vitam in Deficiency Prevention Take 1 capsule by mouth every morning. Active polyethylene glycol (MIRALAX) 17 gram packetIndication s:constipation Take 1 packet (17 g total) by mouth daily Active estradioL (Imvexxy Maintenance Pack) 4 mcg insert vaginal insert Insert 4 mcg into the vagina 2 (two) times a week 8 each 11 2 Active amLODIPine (NORVASC) 5 mg tablet TAKE 1 TABLET (5 MG TOTAL) BY MOUTH DAILY. 90 tablet 3 5 12/02/19 26 Active calcium citrate-vitamin D3 200 mg-3.125 mcg (125 unit) tablet Take 1 tablet by mouth daily Active fish,bora,flax oils-om3,6,9no1 400-400-400 mg capsule Take 1 tablet by mouth daily Active ergocalciferol, vitamin D2, (VITAMIN D2 ORAL) Take by mouth 03/17/20 25 Discontinu ed(Therapy completed) Active Problems Problem Noted Date Diagnosed Date Prediabetes 04/20/2024 Health care maintenance 04/17/2024 Overview (03/15/2025): Paps: no longer indicated Mammo: 09/2023 wnl CRC screening: c-scope 2021, repeat in 5 years DEXA: 11/2023 osteopenia Assessment & Plan (04/17/2024 10:15 AM FINANCIAL SALES CONSULTANT): Reviewed health maintenance issues - diet, exercise, safety issues, smoking status, alcohol use, immunizations, breast exam, papsmear, mammogram (age 40 to 75), screening colonoscopy (age 45 to 75), bone density study for menopausal female. Reviewed medical problems and medication list. Annual labs ordered as appropriate. At increased risk for cardiovascular disease 10/2023 Assessment & Plan (04/17/2024 10:38 AM FINANCIAL SALES CONSULTANT): Chronic, stable. ASCVD: The 10-year ASCVD risk score (Truman DK, et al., 2019) is: 30.6% Values used to calculate the score: Age: 78 years Sex: Female Is Non- : No Diabetic: No Tobacco smoker: No Systolic Blood Pressure: 138 mmHg Is BP treated: Yes HDL Cholesterol: 96 mg/dL Total Cholesterol: 220 mg/dL FLP ordered yearly Discussed indication to start a statin, she is not amenable at this time. Encouraged lifestyle changes if choosing to monitor with lifestyle changes Elevated serum immunoglobulin free light chains 04/17/2024 Assessment & Plan (04/17/2024 12:31 PM FINANCIAL SALES CONSULTANT): Immunofixation was ordered by her neurologist as workup for neuropathy. Serum protein levels previously normal, immunoglobulin levels normal and immunofixation without monoclonal protein present but her free IgG kappa light chains are elevated. Referral to Hematology for evaluation. Hypertension, essential 01/07/2024 Assessment & Plan (04/17/2024 10:15 AM FINANCIAL SALES CONSULTANT): Chronic, stable. Complications: CKD BP controlled on amlodipine 5 mg daily, will continue current management. Counseled patient on importance of a diet low in salt, processed sugar, and saturated fat for blood pressure management. Assessment & Plan (01/07/2024 4:09 PM CDT): No complications BP controlled on amlodipine 5 mg daily based on home readings, although BP is slightly elevated today. There may be a component of white coat on top of her HTN? Will continue current management for now. Counseled patient on importance of a diet low in salt, processed sugar, and saturated fat for blood pressure management. She should continue keeping a BP log and bring it in to her next visit. Osteopenia of multiple sites 03/25/2018 Assessment & Plan (04/17/2024 10:14 AM FINANCIAL SALES CONSULTANT): Chronic, stable. Counseled on things that will help improve bone density: 1200 mg of calcium daily (from food and supplements), vitamin D supplementation at least 1000 units daily, increasing your daily activity and incorporating weight bearing exercises on most days of the week, and avoidance of alcohol or tobacco products. Next DEXA due in 01/2026. Assessment & Plan (04/25/2023 10:12 AM FINANCIAL SALES CONSULTANT): DEXA 05/2021 showed osteopenia with FRAX of 2.9% Assessment & Plan (04/26/2022 10:48 AM FINANCIAL SALES CONSULTANT): DEXA 05/2021 showed osteopenia with FRAX of 2.9% Assessment & Plan (04/13/2020 10:21 AM FINANCIAL SALES CONSULTANT): Last Dexa scan 04/2018 showed osteopenia. Patient has had no falls or fractures. Hip pain, right 09/21/2011 Assessment & Plan (04/25/2023 10:56 AM FINANCIAL SALES CONSULTANT): The second steroid shot in her bursitis was not as effective as the first shot. Will offer some meloxicam for a short time. Idiopathic peripheral neuropathy Assessment & Plan (04/17/2024 10:26 AM FINANCIAL SALES CONSULTANT): Chronic, stable. Has had neuropathy in her bilateral feet for years. Metabolic workup has previously been unrevealing. 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 Follows with Neurology. Assessment & Plan (04/25/2023 10:56 AM FINANCIAL SALES CONSULTANT): Has numbness in both feet. Has had some issues with balance and doing steps. Assessment & Plan (04/26/2022 10:49 AM FINANCIAL SALES CONSULTANT): Has numbness in both feet. Resolved Problems Problem Noted Date Diagnosed Date Resolved Date Pneumonia of left lower lobe due to infectious organism 11/29/2023 04/17/2024 Assessment & Plan (11/29/2023 9:16 AM CDT): She completed oral antibiotics this past Saturday. Has been feeling well and is fever free. Exam without evidence of persistent infection. She has been visiting her sister who currently lives in a nursing facility. We discussed appropriate respiratory hygiene and use of a mask. Elevated BP without diagnosis of hypertension 04/25/2001/07/2024 Assessment & Plan (11/29/2023 9:14 AM CDT): She has had multiple elevated blood pressure readings in the last 7 months during her visits to the clinic. Reports that her blood pressure readings were in the normal range while admitted. We discussed that her elevated BP is contributing to an elevated ASCVD 10 year risk score of roughly 30%. She is resistant to starting an anti-hypertensive today. She is amenable to checking her BP daily at home for the next 4 weeks, and will bring a log in to our next visit. We will discuss starting an anti-hypertensive at that time if her systolics are persistently over 140. Would recommend amlodipine 5 mg daily if necessary. Assessment & Plan (04/25/2023 11:08 AM FINANCIAL SALES CONSULTANT): This bears watching, but still in a normal range for age. Might be up with recent NSAID use. History of sacrocolpopexy 08/21/2021 Status post laparoscopic sup racervical hysterectomy, bilateral salpingo-oophorectomy 08/21/2021 04/26/2022 Assessment & Plan (08/21/2021 12:44 PM CDT): - excellent support on today's exam - discussed ways to prevent recurrence of prolapse including: avoiding heavy lifting, avoiding constipation, and avoiding weight gain - she will return in one year for follow up Nocturia 08/21/2021 04/26/2022 Assessment & Plan (08/21/2021 12:41 PM CDT): - normal PVR at today's visit - will send urine for culture to rule out UTI as possible cause - we discussed that night time urinary symptoms can be improved with decreasing fluid intake 3 hours prior to bedtime and by elevating legs during the afternoon for improved diuresis prior to sleep. Night time urinary symptoms are also often associated with sleep disorders, including sleep apnea. We recommend follow up with her PCP regarding possible referral to sleep medicine. Bilateral myofascial pain 08/21/2021 Primary osteoarthritis of right knee 06/26/2021 04/26/2022 Neuropathy 04/18/2021 04/26/2022 DVT femoral (deep venous thr ombosis) with thrombophlebitis, right 07/27/2020 04/18/2021 Assessment & Plan (11/08/2020 2:03 PM CDT): She had a provoked DVT (fractured femur, inactivity) diagnosed on July 20. Has been on xarelto since, no bleeding or bruising. Now is wearing support stockings. Will stop the xarelto, start a daily aspirin. Assessment & Plan (07/27/2020 2:46 PM CDT): 1. xarelto 15 mg twice daily for 21 days, then 2. Xarelto 20 mg daily for two more months. 3. Wear a support stocking (knee high) on the right leg from this point forward. We reviewed her recent studies (detailed above). We will follow up in three months. DVT (deep vein thrombosis) in 07/27/2020 07/27/2020 Subchondral insufficiency fr acture of condyle of right femur (CMS/HCC) 04/05/2020 04/18/2021 Assessment & Plan (11/08/2020 2:02 PM CDT): This was associated with a full thickness meniscal tear. She was treated with non weight bearing and rest. Is now able to walk with minimal pain. Assessment & Plan (07/27/2020 2:45 PM CDT): Doing better on this front and back to walking normally Cervical muscle pain 06/15/2019 021 Assessment & Plan (06/15/2019 1:59 PM FINANCIAL SALES CONSULTANT): Take 1-2 Aleve tablets twice daily with meals Do not take any advil or ibuprofen while taking the Aleve. Use ice to the area of pain twice daily for 10 minutes. Use over the counter Aspercreme with Lidocaine to the area of discomfort. Vaginal atrophy 04/22/2019 04/26/2022 Assessment & Plan (08/21/2021 12:42 PM CDT): - we discussed the importance of consistent use of twice weekly VET Other constipation 04/22/2019 Prepatellar bursitis, right knee 07/17/2018 04/18/2021 Acute non-recurrent sinusitis 07/17/2018 04/18/2021 Assessment & Plan (11/08/2020 2:13 PM CDT): Treated recently with a ten day course of doxycycline for post nasal drainage and a cough. This largely cleared, still has some cough. Assessment & Plan (07/17/2018 2:04 PM FINANCIAL SALES CONSULTANT): Worsening- Start Augmentin as directed. Advised of side effects of this medication. If you develop diarrhea due to the antibiotic, take Immodium, and start Probiotic, i.e., Align or Culturelle, or generic. Take one tablet of probiotic once daily while on the antibiotic and for one week after finishing antibiotic. If diarrhea or other side effect persists, please call the office to report. Start Mucinex 600 mg one tablet every 12 hours as needed to thin secretions. Stay well hydrated. Return for follow up in one week if symptoms do not improve, return sooner if getting worse. Influenza-like symptoms 07/17/201803/14 Assessment & Plan (07/17/2018 2:03 PM FINANCIAL SALES CONSULTANT): Influenza swab-negative BMI 23.0-23.9, adult 07/17/2018 021 Assessment & Plan (04/13/2020 9:21 AM FINANCIAL SALES CONSULTANT): BMI Follow-up includes: nutrition counseling, exercise counseling and education provided. Assessment & Plan (06/15/2019 1:57 PM FINANCIAL SALES CONSULTANT): BMI is normal for age. Assessment & Plan (04/07/2019 9:15 AM FINANCIAL SALES CONSULTANT): BMI Follow-up includes: nutrition counseling and exercise counseling. Assessment & Plan (07/17/2018 2:03 PM FINANCIAL SALES CONSULTANT): With BMI 25 or less this patient is a healthy weight for age Acute pharyngitis due to oth er specified organisms 07/17/2018 04/18/2021 Assessment & Plan (07/17/2018 2:03 PM FINANCIAL SALES CONSULTANT): Rapid strep-negative Postoperative state 05/19/2018 04/07/20 19 Incomplete uterovaginal prolapse 03/13/2018 08/11/2018 Cystocele, midline 03/13/2018 9 Pelvic floor dysfunction in female 03/13/2018 04/26/2022 Assessment & Plan (08/21/2021 12:46 PM CDT): - We discussed the role that her pelvic floor muscle dysfunction is likely playing in her urinary symptoms. Management options for levator ani/obturator pain/spasm were discussed including pelvic floor physical therapy. Patient declined PFPT at this time. Eczema 04/27/2017 03/25/2018 Lipoma of upper extremity 04/27/2017 Varicose veins of lower extremity 04/27/2017 04/26/2022 Knee pain 11/19/2016 03/25/2018 Increased frequency of urination 05/18/2016 04/07/2019 Benign colonic polyp 05/09/2016 022 Overview (04/18/2021): Serrated adenoma sigmoid colon, 22 mm in 2013 Assessment & Plan (04/18/2021 10:11 AM FINANCIAL SALES CONSULTANT): Serrated adenoma sigmoid colon, 22 mm in 2013 Assessment & Plan (03/25/2018 9:57 AM FINANCIAL SALES CONSULTANT): Serrated adenoma on colonoscopy in 2013. 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 03/25/2018 Recurrent urinary tract infection 04/16/2014 04/07/2019 Sebaceous cyst 04/29/2013 03/25/2018 Lumbago 04/28/2013 04/18/2021 Inversion of nipple 12/24/2012 03/21/20 17 Overview (08/16/2016): Inverted nipple Inflamed seborrheic keratosis 08/01/2012 03/25/2018 Actinic keratosis 08/01/2012 03/25/2018 Squamous cell carcinoma of skin 12/29/2011 03/25/2018 Itch 04/28/2011 03/25/2018 Keratosis, senilis 04/28/2011 8 Blood in urine 04/19/2011 03/25/2018 Gait instability 04/26/2022 Encounters Date Type Department Care Team Description 04/01/2025 Telephone [facility] [address] [place] [address] [address] [place] [address] Aedlaide Gutierrez RN 03/31/2025 Telephone [facility] [address] [place] [address] [address] [place] [address] Roula Kenny MD 03/18/2025 Results Follow-Up [facility] [address] [place] [address] [address] [place] [address] Roula Kenny MD Hemoglobin A1c, Lipid panel, TSH, Additional followed-up results: 8 03/17/2025 4:00 PM FINANCIAL SALES CONSULTANT Lab [facility] at [address] [place] [address] Prediabetes; Hyperlipidemia, unspecified hyperlipidemia type; Osteopenia, unspecified location; Hypothyroidism, unspecified type; Vitamin D deficiency; Need for hepatitis B screening test; Chronic kidney disease, unspecified CKD stage 03/17/2025 3:00 PM FINANCIAL SALES CONSULTANT Office Visit [facility] Geriatric Medicine [address] [place] [address] [address] [place] [id number] Roula Kenny MD Need for hepatitis B screening test (Primary Dx); Prediabetes; Chronic kidney disease, unspecified CKD stage; Hyperlipidemia, unspecified hyperlipidemia type; Vitamin D deficiency; Osteopenia, unspecified location; Hypothyroidism, unspecified type from Last 3 Months Immunizations Immunization Administration Dates Next Due Flucelvax Influenza Quad 01/18/2025 Influenza, Quad, Adjuvantate d, Intramuscular 01/11/2023 Influenza, Quadrivalent, Hig h Dose, Preservative Free, Intrr 01/12/2022,01/08/2021,01/04/2020 Influenza, Split 02/10/2010 Influenza, Trivalent, Adjuva nted, Intramuscular 12/27/2018 Influenza, Trivalent, High D ose, Split, Preservative Free, Intramuscular 01/12/2024,01/09/2018,01/23/2017,01/11,01/13/2015 Influenza, Trivalent, IM (MDV) 02/10/2011,2007 Influenza, Trivalent, Preser vative Free, Intramuscular 01/15/2013,02/12/2012 Influenza, Unspecified 01/11/2023,2020,01/10/2018,02/10 Pfizer SARS-CoV-2 Monovalent Vaccination (12+ Yrs) PURPLE 02/06/2021 Pneumococcal Conjugate PCV 13 04/22/2015 Pneumococcal Conjugate Pcv20 04/25/2023 Pneumococcal Polysaccharide PPV23 04/08/2012 RSV, Bivalent, Protein Subun it Rsvpref, Diluent (Abrysvo) 04/18/2024 Td, adsorbed 02/27/2003 Tdap 08/09/2023,04/08/2012 ZOSTER LIVE 05/13/2009 ZOSTER Recombinant 02/15/2019,11/05/2018 Surgical History Surgery Date Site/Laterality Comments OTHER SURGICAL HISTORY Varicose veins: saphenous vein ablation OTHER SURGICAL HISTORY arthritis: steroid injection. TONSILLECTOMY COLONOSCOPY 05/13/2016 - 05/12/2017 COLPOPEXY 04/02/2018 LAPAROSCOPIC SUPRACERVICAL HYSTERECTOMY 04/02/2018 BILATERAL SALPINGOOPHORECTOMY 04/02/2018 JOINT REPLACEMENT 05/13/2021 - 05/12/2022 Right right TKA HYSTERECTOMY March 2018 BLADDER SURGERY March 2018 BREAST BIOPSY Bilateral both benign Medical History Medical History Date Comments Hx Other Medical Colonic polyps Superficial basal cell carcinoma Cancer, basal Cell Hx Other Medical Headache, migra ine Hx Other Medical 2010 Varicose veins Arthritis 2010 arthritis Squamous cell carcinoma 2012 Cancer, squamous cell Hx Other Medical 2010 Inverted nipple Uterovaginal prolapse PONV (postoperative nausea and vomiting) Peripheral neuropathy DVT femoral (deep venous thr ombosis) with thrombophlebitis, right (HCC) 07/27/2020 Subchondral insufficiency fr acture of condyle of right femur (HCC) 04/05/2020 Gait instability Osteoarthritis of right knee Total knee replacement status, right Neuropathy Colon polyp Diverticulosis Status post laparoscopic sup racervical hysterectomy, bilateral salpingo-oophorectomy 08/21/2021 History of sacrocolpopexy 08/21/2021 Primary osteoarthritis of right knee 06/26/2021 Benign colonic polyp 05/09/2016 Serrated ad enoma sigmoid colon, 22 mm in 2013 Pelvic floor dysfunction in female 03/13/2018 Family History * Patient is adopted Medical History Relation Name Comments Dementia Father 102 Other Father 102 old age; Cause of : old age Other Mother 95 fall; Cause of : fall Other Other Family history of Descent - [place]; Colon cancer Neg Hx Relation Name Status Comments Father 102 Mother 95 Other Social History Tobacco Use Types Packs/Day Years Used Date Smoking Tobacco: Never Cigarettes Smokeless Tobacco: Never Tobacco Cessation:Counseling Given: Not Answered Alcohol Use Standard Drinks/Week Comments Yes 2 (1 standard drink = 0.6 oz pure alcohol) I drink my beer from a bottle, not from a can. PHQ-2 Answer Date Recorded PHQ-2 Total Score (If total score is 3 or more points, staff should administer the PHQ-9) 0 03/16/2025 Exercise Vital Sign Answer Date Recorde d Days of Exercise per Week 5 days 2018 Minutes of Exercise per Session 20 min 08/11/2018 AUDIT-C Answer Date Recorded Q1: How often do you have a drink containing alc ohol? 2-3 times a week 03/17/2025 Q2: How many drinks containi ng alcohol do you have on a typical day when you are drinking? 1 or 2 03/17/2025 Q3: How often do you have si x or more drinks on one occasion? Weekly 03/17/2025 Comments No Sex and Gender Information Value Date Recorded Sex Assigned at Female 08/06/2018 6:24 AM CDT Legal Sex Female 11:35 PM FINANCIAL SALES CONSULTANT Gender Identity Female 08/06/2018 6:24 AM CDT Sexual Orientation Straight 08/06/2018 6: 24 AM CDT Occupation Industry Job Start Date Job End Date Retired Not on file Not on file Not on file Obstetrics History Para Term AB IAB SAB Ectopic Multiple Livin g Live Births 2 2 2 2 2 Date Outcome GA Total Labor Labor/2nd/3rd Weight Sex Type Anes PTL Melisa A1 A5 Name Clin Term Vag-S pont Living Term Vag-S pont Living Last Filed Vital Signs Vital Sign Reading Time Taken Comments Blood Pressure 184/94 03/17/2025 2:31 PM FINANCIAL SALES CONSULTANT Pulse 89 03/17/2025 2:31 PM FINANCIAL SALES CONSULTANT Temperature 36.6 C (97.9 F) 03/17/2025 2:31 PM FINANCIAL SALES CONSULTANT Respiratory Rate 18 05/29/2024 9:51 AM FINANCIAL SALES CONSULTANT Oxygen Saturation 96% 03/17/2025 2:31 PM FINANCIAL SALES CONSULTANT Inhaled Oxygen Concentration - - Weight 66.9 kg (147 lb 6.4 oz) 03/17/2025 2:31 P M FINANCIAL SALES CONSULTANT Height 170.2 cm (5' 7.01) 03/17/2025 2:31 PM CS T Body Mass Index 23.08 03/17/2025 2:31 PM FINANCIAL SALES CONSULTANT Plan of Treatment Health Maintenance Due Date Last Done Comments Covid-19 Vaccine (2024-06 6 season) 2025 02/06/2021, 07/26/2020, 07/05/2020 Well Visit 65+ 04/17/2025 04/17/2024, 04/12, 04/26/2022, Additional history exists Osteoporosis Screening-Bone Density Scan 12/05/2025 12/06/2023, 05/16/2021, 05/02/2018 Depression Screening 03/17/2026 03/17/2025, 04/17/2024, 04/25/2023, Additional history exists Fall Risk Assessment 03/17/2026 03/17/2025, 04/17/2024, 04/25/2023, Additional history exists DTaP/Tdap/Td Vaccine (3 - Td or Tdap) 08/08/2033 08/09/2023, 04/08/2012, 02/27/2003 Hepatitis C Screening Completed 04/16/2013 Zoster Vaccine Completed 02/15/2019, 10/12, 05/13/2009 Colon Cancer Screening-CT Colonography Discontinued 10/31/2021, 06/09/2013 Colon Cancer Screening-Colonoscopy Discontinued 10/31/2021, 06/09/2013 Colon Cancer Screening-DNA Stool Discontinued 11/01/19 22, 06/09/2013 Colon Cancer Screening-FIT Discontinued 10/31/2021, Colon Cancer Screening-FOBT Discontinued 10/31/2021, 0 06/09/2013 Colon Cancer Screening-Sigmoidoscopy Discontinued 10/31/2021, 06/09/2013 Colorectal Cancer Screening Discontinued Pneumococcal vaccine 65+ Completed 023, 04/22/2015, 04/08/2012 Breast Cancer Screening-Mammogram Discontinued 11/23/2024, 09/25/2023, 07/06/2022, Additional history exists Influenza Vaccine Completed 01/18/2025, , 01/11/2023, Additional history exists Hepatitis B Screening Completed 03/17/2025 Medical Devices Implanted Type Area Cooler Service Supervisor Device Identifier Shelf Expiration Date Model / Serial / Lot [employer] 6191-1-010 Simplex P Radiopaque Full Dose Cement Bone Sterile - Sn/A - [id number] Implanted:Qty: 1 on 06/26/2021 by Gareth Mccrary MD at [facility] Bone Cement Right: Knee [employer] 07/11/2023 6191-1-0 10 / N/A / [id number] [employer] Jerry [id number] Restorelle Smartmesh 24x4cm Lightweight Nonpalpable Y Flat Mesh - [id number] - [id number] Implanted:Qty: 1 on 04/02/2018 by Mark Benites MD at [facility] Mesh [employer] 07/12/2020 [id number] / [id number] / [employer] [id number] Ascent Maxim 71mm 1 Piece Cruciate Fin Knee Tray Tibial Interlok - Sn/A - [id number] Implanted:Qty: 1 on 06/26/2021 by Gareth Mccrary MD at [facility] Other - see comments Right: Knee [employer] [id number] 03/14/2031 [id number] / N/A / [id number] [employer] [id number] Vanguard 70mm Cruciate Retaining Primary Knee Right Component - Sn/A - [id number] Implanted:Qty: 1 on 06/26/2021 by Gareth Mccrary MD at [facility] Other - see comments Right: Knee [employer] [id number] 07/08/2030 [id number] / N/A / [id number] [employer] [id number] Vanguard [id number] Cruciate Retaining Inlay Direct Compression - Sn/A - [id number] Implanted:Qty: 1 on 06/26/2021 by Gareth Mccrary MD at [facility] Other - see comments Right: Knee [employer] [id number] 05/27/2025 [id number] / N/A / [id number] Procedures Procedure Name Priority Date/Time Associated Diagnosis Comments EGFR Routine 03/17/2025 3:50 PM FINANCIAL SALES CONSULTANT Chronic kidney disease, unspecified CKD stage DIFFERENTIAL AUTO Routine 03/17/2025 3:5 0 PM FINANCIAL SALES CONSULTANT Prediabetes CBC WITH AUTO DIFFERENTIAL Routine 03/17/2025 3:50 PM FINANCIAL SALES CONSULTANT Prediabetes COMPREHENSIVE METABOLIC PANEL Routine 03/17/2025 3:50 PM FINANCIAL SALES CONSULTANT Chronic kidney disease, unspecified CKD stage VITAMIN D 25 HYDROXY Routine 03/17/2025 3:50 PM FINANCIAL SALES CONSULTANT Vitamin D deficiency Osteopenia, unspecified location TSH Routine 03/17/2025 3:50 PM FINANCIAL SALES CONSULTANT Osteopenia, unspecified location Hypothyroidism, unspecified type LIPID PANEL Routine 03/17/2025 3:50 PM FINANCIAL SALES CONSULTANT Hyperlipidemia, unspecified hyperlipidemia type HEMOGLOBIN A1C Routine 03/17/2025 3:50 PM FINANCIAL SALES CONSULTANT Prediabetes HEPATITIS B SURFACE ANTIGEN Routine 03/17/2025 3:50 PM FINANCIAL SALES CONSULTANT Need for hepatitis B screening test HEPATITIS B CORE ANTIBODY, TOTAL Routine 03/17/2025 3:50 PM FINANCIAL SALES CONSULTANT Need for hepatitis B screening test HEPATITIS B SURFACE ANTIBODY (IMMUNE STATUS) Routine 03/17/2025 3:50 PM FINANCIAL SALES CONSULTANT Need for hepatitis B screening test SCREENING MAMMOGRAM BILATERAL W DARIAN Schedule Routine, Read Routine (OP Routine) 11/23/2024 10:43 AM CDT Screening mammogram, encounter for DEXA AXIAL SKELETON BONE DENSITY 1 OR MORE SITES Schedule Routine, Read Routine (OP Routine) 12/06/2023 9:52 AM CDT Osteopenia of multiple sites COLONOSCOPY 10/31/2021 12:03 PM CDT SERUM HEPATITIS C AB Routine 04/16/2013 4:07 AM FINANCIAL SALES CONSULTANT from Last 3 Months or Most Recently Relevant to Health Maintenance Results * eGFR (03/17/2025 3:50 PM FINANCIAL SALES CONSULTANT) eGFR 63 >=60 mL/min/1. 73 m2 Comment: Interpretive Data Reference Interval Normal >/= 90 mL/min/1.73m2 Mildly decreased* 60 - 89 mL/min/1.73m2 Mildly to moderately decreased 45 - 59 mL/min/1.73m2 Moderately to severely decreased 30 - 44 mL/min/1.73m2 Severely decreased 15 - 29 mL/min/1.73m2 Kidney Failure < 15 mL/min/1.73m2 *Relative to young adult level Estimated glomerular filtration rate is determined by the 2020 CKD-EPI equation recommended by the National Kidney Foundation (A Unifying Approach to GFR Estimation: Recommendations of the NKF-ASK Task Force on Reassessing the Inclusion of Race in Diagnosing Kidney Disease, JASN 2020). The CKD-EPI equation should not be used for patients with unstable renal function and has not been validated in children and those over 70. Current interpretive data was last reviewed 2021. Testing performed by: [facility], [address] [place] [address] Blood 03/17/2025 3:50 PM FINANCIAL SALES CONSULTANT 03/17/2025 4:10 PM FINANCIAL SALES CONSULTANT us Roula Kenny MD LAB BLOOD ORDERABLES Final Result [facility] [address] Department [place] [address] * Differential, auto (03/17/2025 3:50 PM FINANCIAL SALES CONSULTANT) Neutrophil abs 5.51 1.50 - 6.50 K/cumm Comment:Testing performed by : [facility], [facility], [address] [place] [address] Imm gran abs 0.02 0.00 - 0.10 K/cumm JAVI MONTOYA Comment:Testing performed by : [facility], [facility], [address] [place] [address] Lymphocyte abs 1.34 0.80 - 3.30 K/cumm JAVI MONTOYA Comment:Testing performed by : [facility], [address] [place] [address] Monocyte abs 0.64 0.20 - 0.80 K/cumm JAVI MONTOYA Comment:Testing performed by : [facility], [facility], [address] [place] [address] Eosinophil abs 0.06 0.00 - 0.50 K/cumm CERNER BJWCH Comment:Testing performed by : [facility], [facility], [address] [place] [address] Basophil abs 0.04 0.00 - 0.10 K/cumm CERNER BJWCH Comment:Testing performed by : [facility], [facility], [address] [place] [address] Neutrophil pct 72.4 % CERNER BJWCH Comment: Interpretive Data Percent cell count reference ranges are not reported, since discordance with absolute values may lead to misinterpretation of CBC data. Current Interpretive Data was last revised on 2017. Testing performed by: [facility], [facility], [address] [place] [address] Imm gran pct 0.3 % CERNER BJWCH Comment: Interpretive Data Percent cell count reference ranges are not reported, since discordance with absolute values may lead to misinterpretation of CBC data. Current Interpretive Data was last revised on 2017. Testing performed by: [facility], [facility], [address] [place] [address] Lymphocyte pct 17.6 % CERNER BJW Comment: Interpretive Data Percent cell count reference ranges are not reported, since discordance with absolute values may lead to misinterpretation of CBC data. Current Interpretive Data was last revised on 2017. Testing performed by: [facility], [address] [place] [address] Monocyte pct 8.4 % CERNER BJWCH Comment: Interpretive Data Percent cell count reference ranges are not reported, since discordance with absolute values may lead to misinterpretation of CBC data. Current Interpretive Data was last revised on 2017. Testing performed by: [facility], [facility], [address] [place] [address] Eosinophil pct 0.8 % CERNER BJWCH Comment: Interpretive Data Percent cell count reference ranges are not reported, since discordance with absolute values may lead to misinterpretation of CBC data. Current Interpretive Data was last revised on 2017. Testing performed by: [facility], [facility], [address] [place] [address] Basophil pct 0.5 % JAVI MONTOYA Comment: Interpretive Data Percent cell count reference ranges are not reported, since discordance with absolute values may lead to misinterpretation of CBC data. Current Interpretive Data was last revised on 2017. Testing performed by: [facility], [address] [place] [address] Blood 03/17/2025 3:50 PM FINANCIAL SALES CONSULTANT 03/17/2025 3:53 PM FINANCIAL SALES CONSULTANT us Roula Kenny MD LAB BLOOD ORDERABLES Final Result JAVI MONTOYA [address] [facility]. Department [place] [address] * (ABNORMAL) CBC with auto differential (03/17/2025 3:50 PM FINANCIAL SALES CONSULTANT) WBC 7.61 3.80 - 9.90 K/cumm Comment:Testing performed by : [place] [address], [address] [place] [address] Hgb 14.6 11.9 - 15.5 g/dL JAVI MONTOYA Comment:Testing performed by : [facility], [address] [place] [address] Hct 44.4 35.6 - 45.5 % JAVI MONTOYA Comment:Testing performed by : [facility], [address] [place] [address] Plt 235 150 - 400 K/cumm JAVI MONTOYA Comment:Testing performed by : [place] [address], [address] [place] [address] MPV 8.6(L) 9.1 - 12.3 fL JAVI MONTOYA Comment:Testing performed by : [facility], [address] [place] [address] RBC 4.81 3.90 - 5.20 M/cumm JAVI BJCH Comment:Testing performed by : [facility], [facility], [address] [place] [address] MCV 92.3 81.3 - 96.4 fL CERELIZABETH BJWCH Comment:Testing performed by : [facility], [facility], [address] [place] [address] MCH 30.4 27.1 - 33.3 pg CERELIZABETH BJWCH Comment:Testing performed by : [facility], [facility], [address] [place] [address] MCHC 32.9 32.3 - 35.7 g/dL JAVI ELKINSCH Comment:Testing performed by : [facility], [facility], [address] [place] [address] RDW CV 12.7 11.1 - 14.9 % JAVI BJCH Comment:Testing performed by : [place] [address], [address] [place] [address] RDW SD 43.6 35.7 - 48.1 fL [facility] Comment:Testing performed by : [facility], [facility], [address] [place] [address] ANC Prelim 5.51 1.50 - 6.50 K/cumm [facility] Comment: Interpretive Data The rapid ANC is a preliminary automated count and may vary from the final ANC (Neut Abs) reported in the WBC differential that follows. Current interpretive data was last revised 2024. Testing performed by: [facility], [address] [place] [address] Blood 03/17/2025 3:50 PM FINANCIAL SALES CONSULTANT 03/17/2025 3:53 PM FINANCIAL SALES CONSULTANT us Roula Kenny MD LAB BLOOD ORDERABLES Final Result JAVI ELKINSWCH [address] [facility]. [facility] of [employer] [place], [place] [id number] * Hepatitis B core antibody, total Blood (03/17/2025 3:50 PM FINANCIAL SALES CONSULTANT) Pathologist [facility] Hep B core IgG/IgM Nonreactive Nonreactive Comment:Testing performed by : [facility], [address] [place]., [address] Blood 03/17/2025 3:50 PM FINANCIAL SALES CONSULTANT 03/17/2025 7:09 PM FINANCIAL SALES CONSULTANT Roula Kenny MD LAB MICROBIOLOGY - GENERAL ORDERABLES Final Result Performing Organization Address City/[facility]/ZIP Co de Phone Number [facility] [address] [facility]. [place] [address] * Vitamin D 25 hydroxy (03/17/2025 3:50 PM FINANCIAL SALES CONSULTANT) [facility] Vitamin D 25-OH 51 30 - 80 ng/mL Comment:Testing performed by : [facility], [address] [place] [address] Blood 03/17/2025 3:50 PM FINANCIAL SALES CONSULTANT 03/17/2025 4:10 PM FINANCIAL SALES CONSULTANT Roula Kenny MD LAB BLOOD ORDERABLES Final Result Performing Organization Address City/[facility]/ZIP Co de Phone Number JAVI BJWCH [address] [facility]. Department [place] [place] [address] * Hepatitis B surface antibody (immune status) Blood (03/17/2025 3:50 PM FINANCIAL SALES CONSULTANT) Pathologist [facility] HBsAb (immune status) Nonreactive Comment: This result is consistent with a lack of immunity to Hepatitis B Virus when used in the setting of routine screening. Current interpretative data was last revised on 22 Testing performed by: [facility], [address] [place]., [address] Blood 03/17/2025 3:50 PM FINANCIAL SALES CONSULTANT 03/17/2025 7:09 PM FINANCIAL SALES CONSULTANT Roula Kenny MD LAB MICROBIOLOGY - GENERAL ORDERABLES Final Result Performing Organization Address [facility] Co de Phone Number JAVI ELKINSCH [phone] [employer] [facility] [place] [address] * Hepatitis B Surface Antigen Blood (03/17/2025 3:50 PM FINANCIAL SALES CONSULTANT) Pathologist [facility] HepBsAg Nonreactive Nonreactive Comment:Testing performed by : [facility], [address] [place] [address]., [address] Blood 03/17/2025 3:50 PM FINANCIAL SALES CONSULTANT 03/17/2025 11:37 PM FINANCIAL SALES CONSULTANT Roula Kenny MD LAB MICROBIOLOGY - GENERAL ORDERABLES Final Result Performing Organization Address [facility] de Phone Number [facility] [address] [address] [employer] [facility] [place] [address] * TSH (03/17/2025 3:50 PM FINANCIAL SALES CONSULTANT) [facility] Thyroid Stimulating Hormone 2.10 0.30 - 4.20 mcIUnit/mL Comment:Testing performed by : [facility], [address] [facility] [place] [address] Blood 03/17/2025 3:50 PM FINANCIAL SALES CONSULTANT 03/17/2025 4:10 PM FINANCIAL SALES CONSULTANT Roula Kenny MD LAB BLOOD ORDERABLES Final Result Performing Organization Address [facility] Co de Phone Number JAVI BJWCH [address] [address] [employer] [facility] [place] [address] * (ABNORMAL) Hemoglobin A1c (03/17/2025 3:50 PM FINANCIAL SALES CONSULTANT) [facility] Hgb A1C 5.8(H) 4.0 - 5.6 % Comment:Testing performed by : [facility], [address] [place] [address] Estimated Average Glucose 120 mg/dL JAVI MONTOYA Comment: The ADA recommends reporting an estimated Average Glucose (eAG) with all Hemoglobin A1c results using the equation derived from a study of 507 normal and diabetic adults. Minority populations were underrepresented and children were not included. (Diabetes Care 31:0582-6581, 2008). The eAG is not equivalent to a fasting glucose. Testing performed by: [facility], [address] [place] [address] Blood 03/17/2025 3:50 PM FINANCIAL SALES CONSULTANT 03/17/2025 4:10 PM FINANCIAL SALES CONSULTANT us Roula Kenny MD LAB BLOOD ORDERABLES Final Result [facility] [address] Department [place] [address] * (ABNORMAL) Lipid panel (03/17/2025 3:50 PM FINANCIAL SALES CONSULTANT) Cholesterol 236(H) 30 - 199 mg/dL Comment: Interpretive Data Ages < or = 19 years Acceptable: <170 mg/dL Borderline high: 170-199 mg/dL High: >or= 200 mg/dL Ages > or = 20 years Desirable: <200 mg/dL Borderline high: 200-239 mg/dL High: >or= 240 mg/dL Literature References: 1. Expert Panel on Integrated Guidelines for Cardiovascular Health and Risk Reduction in Children and Adolescents. Pediatrics 2011;128:S213 2. NCEP Expert Panel. Circulation 2004;110:227 Current Interpretive Data was last revised on 2017. Testing performed by: [facility], [address] [place] [address] Triglycerides 70 <=149 mg/dL JAVI MONTOYA Comment: Interpretive Data Ages < or = 9 years Acceptable: <75 mg/dL Borderline high: 75-99 mg/dL High: >or= 100 mg/dL Ages 10 to 20 years Acceptable: <90 mg/dL Borderline high: 90-129 mg/dL High: >or= 130 mg/dL Ages > or = 20 years Desirable: <150 mg/dL Borderline high: 150-199 mg/dL High: 200-499 mg/dL Very high: >or= 499 mg/dL Literature References: 1. Expert Panel on Integrated Guidelines for Cardiovascular Health and Risk Reduction in Children and Adolescents. Pediatrics 2011;128:S213 2. NCEP Expert Panel. Circulation 2004;110:227 Current Interpretive Data was last revised on 2017. Testing performed by: [facility], [address], [place] [address] HDL 104 >=40 mg/dL CERNER [facility] Comment: Interpretive Data Ages < or = 19 years Acceptable: >45 mg/dL Borderline low: 40-45 mg/dL Low: <40 mg/dL Ages > or = 20 years Desirable: >or= 60 mg/dL Low: <40 mg/dL Literature References: 1. Expert Panel on Integrated Guidelines for Cardiovascular Health and Risk Reduction in Children and Adolescents. Pediatrics 2011;128:S213 2. NCEP Expert Panel. Circulation 2004;110:227 Current Interpretive Data was last revised on 2017. Testing performed by: [facility], [address], [place] [address] LDL, calculated 120 <=129 mg/dL JAVI [facility] Comment: Interpretive Data Ages < or = 19 years Acceptable: <110 mg/dL Borderline high: 110-129 mg/dL High: >or= 130 mg/dL Ages > or = 20 years Optimal: <100 mg/dL Near optimal: 100-129 mg/dL Borderline high: 130-159 mg/dL High: >160 mg/dL Calculated using the Abdiaziz LDL-C estimating equation. This equation was implemented on 2024. Prior to this date LDL-C was estimated using the Friedewald equation. Literature References: 1. Expert Panel on Integrated Guidelines for Cardiovascular Health and Risk Reduction in Children and Adolescents. Pediatrics 2011;128:S213 2. NCEP Expert Panel. Circulation 2004;110:227 3. Abdiaziz Aguilar al. NINFA Cardiol. 2020 September 10;5(5):540-548. doi: 10.1001/jamacardio.2020.0013 Current Interpretive Data was last revised on 2024. Testing performed by: [facility], [address], [place] [address] Non-HDL Cholesterol 132 mg/dL CERELIZABETH BJWCH Comment: Interpretive Data Ages < or = 19 years Acceptable: <120 mg/dL Borderline high: 120-144 mg/dL High: >145 mg/dL Ages > or = 20 years When triglycerides are >200 mg/dL, Non-HDL cholesterol is a secondary target of therapy with treatment goals that are 30 mg/dL greater than the LDL cholesterol target. Literature References: 1. Expert Panel on Integrated Guidelines for Cardiovascular Health and Risk Reduction in Children and Adolescents. Pediatrics 2011;128:S213 2. NCEP Expert Panel. Circulation 2004;110:227 Current Interpretive Data was last revised on 2017. Testing performed by: [facility], [address] [place] [address] Chol/HDL ratio 2 JAVI MONTOYA Comment:Testing performed by : [facility], [address] [place] [address] Blood 03/17/2025 3:50 PM FINANCIAL SALES CONSULTANT 03/17/2025 4:10 PM FINANCIAL SALES CONSULTANT us Roula Kenny MD LAB BLOOD ORDERABLES Final Result JAVI GEE [address] Department [place] [address] * (ABNORMAL) Comprehensive metabolic panel (03/17/2025 3:50 PM FINANCIAL SALES CONSULTANT) Sodium 140 135 - 145 mmol/L Comment:Testing performed by : [facility], [address] [place] [address] Potassium, pl 4.5 3.3 - 4.9 mmol/L JAVI MONTOYA Comment:Testing performed by : [facility], [address] [place] [address] Chloride 102 97 - 110 mmol/L JAVI MONTOYA Comment:Testing performed by : [facility], [address] [place] [address] CO2 28 22 - 32 mmol/L JAVI MONTOYA Comment:Testing performed by : [facility], [address], [place] [address] Anion gap 10 2 - 15 mmol/L CERNER BJWCH Comment:Testing performed by : [facility], [address], [place] [address] BUN 22 6 - 25 mg/dL CERNER BJWCH Comment:Testing performed by : [facility], [address], [place] [address] Creatinine 0.93 0.60 - 1.10 mg/dL CERNER BJWCH Comment:Testing performed by : [facility], [address], [place] [address] Glucose 96 70 - 199 mg/dL CERNER BJWCH Comment: Interpretive Data Fasting glucose >/= 126 mg/dl is diagnostic for diabetes. Fasting is defined as no caloric intake for at least 8 hours. Fasting glucose between 100 mg/dl to 125 mg/dl is diagnostic of prediabetes. In a patient with classic symptoms of hyperglycemia or hyperglycemic crisis, a random glucose >/= 200 mg/dl is diagnostic for diabetes. In the absence of unequivocal hyperglycemia, results should be confirmed by repeat testing. The classification and Diagnosis of Diabetes Diabetes Care 202; 46: S19-S40. Testing performed by: [facility], [address], [place] [address] Calcium 10.4(H) 8.5 - 10.3 mg/dL CERNER BJWCH Comment:Testing performed by : [facility], [address], [place] [address] Bilirubin, total 0.6 0.1 - 1.2 mg/dL CERNER BJWCH Comment:Testing performed by : [facility], [address], [place] [address] Protein, pl 7.0 6.5 - 8.5 g/dL CERNER BJWCH Comment:Testing performed by : [facility], [address], [place] [address] Albumin 4.5 3.5 - 5.0 g/dL CERNER BJWCH Comment:Testing performed by : [facility], [address], [place] [address] Alk phos 65 40 - 130 Units/L CERNER BJWCH Comment:Testing performed by : [facility], [address], [place] [address] ALT 30 7 - 45 Units/L JAVI MONTOYA Comment:Testing performed by : [facility], [address], [place] [address] AST 27 10 - 45 Units/L JAVI MOTNOYA Comment:Testing performed by : [facility], [address], [place], [place] [address] Blood 03/17/2025 3:50 PM FINANCIAL SALES CONSULTANT 03/17/2025 4:10 PM FINANCIAL SALES CONSULTANT Roula Kenny MD LAB BLOOD ORDERABLES Final Result JAVI GEECH [address] Department [place] [address] * Screening Mammogram Bilateral W Darian (11/23/2024 10:43 AM CDT) Anatomical Region Laterality Modality Breast Bilateral Mammography Impressions 11/24/2024 3:38 PM CDT Bilateral No evidence of malignancy in either breast. OVERALL BI-RADS FINAL ASSESSMENT: 2 - Benign RECOMMENDATION: Recommend bilateral annual screening mammography. Narrative 11/24/2024 3:38 PM CDT EXAMINATION: Screening Mammogram Bilateral W Darian: 11/23/2024 COMPARISON: Relevant prior studies available at the time of interpretation were reviewed, including the most recent mammogram on: 09/25/2023. TECHNIQUE: Mammography was performed with 2D and digital breast tomosynthesis (DBT) images. CAD was utilized. BREAST PARENCHYMAL COMPOSITION: There are scattered areas of fibroglandular density. FINDINGS: Bilateral There is no suspicious mass, calcification, or architectural distortion in either breast. us Self Screening Mammogram IMG MAMMO PROCEDURES Fi nal Result * Dexa Axial Skeleton Bone Density 1 or 2 Site (12/06/2023 9:52 AM CDT) Anatomical Region Laterality Modality Body N/A Digital Radiogra phy 12/06/2023 9:57 AM CDT Impressions 12/06/2023 10:01 AM CDT Low bone mass (osteopenia) which depending on the clinical circumstances may result in a moderate increased risk of fragility fracture. If followup is to be done, for technical reasons, it should be performed on this same machine. Dictated by: Lala Diaz PA-C The radiology attending physician has personally reviewed this study, and had reviewed and/or edited this written report and agrees with it. Electronically signed by: Cricket Hamilton M.D. Narrative 12/06/2023 10:01 AM CDT EXAM: Bone mineral density examination HISTORY: Postmenopausal female. DXA BMD was done at [facility] on a [employer] W. Precision testing at this site has resulted in a least significant change of: Lumbar spine:0.028 g/sq cm2 Total Hip: 0.031 g/sq cm2 Femoral neck: 0.034 g/sq cm2 BMD L1-L4 is 1.025 g/sq cm corresponding to a T score of -0.2. BMD left femoral neck is 0.659 g/sq cm corresponding to a T score of -1.7. BMD total left hip is 0.862 g/sq cm corresponding to a T score of -0.7. The 10-year fracture risk for major osteoporotic fracture: 13% The 10-year fracture risk for hip fracture: 3.2% FRAX scoring has been performed on all patients regardless of age and risk factors. All treatment decisions require clinical judgment and consideration of individual patient factors. COMPARISON: Accurate comparison with the prior study is not possible as it was performed on a different machine. Procedure Note Cricket Hamilton MD - 12/06/2023 EXAM: Bone mineral density examination HISTORY: Postmenopausal female. DXA BMD was done at [facility] on a [employer] W. Precision testing at this site has resulted in a least significant change of: Lumbar spine:0.028 g/sq cm2 Total Hip: 0.031 g/sq cm2 Femoral neck: 0.034 g/sq cm2 BMD L1-L4 is 1.025 g/sq cm corresponding to a T score of -0.2. BMD left femoral neck is 0.659 g/sq cm corresponding to a T score of -1.7. BMD total left hip is 0.862 g/sq cm corresponding to a T score of -0.7. The 10-year fracture risk for major osteoporotic fracture: 13% The 10-year fracture risk for hip fracture: 3.2% FRAX scoring has been performed on all patients regardless of age and risk factors. All treatment decisions require clinical judgment and consideration of individual patient factors. COMPARISON: Accurate comparison with the prior study is not possible as it was performed on a different machine. IMPRESSION: Low bone mass (osteopenia) which depending on the clinical circumstances may result in a moderate increased risk of fragility fracture. If followup is to be done, for technical reasons, it should be performed on this same machine. Dictated by: Lala Diaz PA-C The radiology attending physician has personally reviewed this study, and had reviewed and/or edited this written report and agrees with it. Electronically signed by: Cricket Hamilton M.D. Steven Rebolledo MD IM DXA PROCEDURES Final Result * COLONOSCOPY (10/31/2021 12:03 PM CDT) Anatomical Region Laterality Modality Other Narrative Procedure Note Jared Chapa MD - 10/31/2021 12:03 PM CDT ENDOSCOPY LAB Patient Name: Pattie Alonso Procedure Date: 10/31/2021 12:03 PM Admit Type: Outpatient Room: [facility] Date of : 1945 Instrument Name: [id number] Gender: Female Note Status: Finalized Procedure: Colonoscopy Indications: Last colonoscopy: 2016, Follow-up for history of adenomatous polyps in the colon Comorbidities 2013 - 20 mm Providers: Jared Chapa M.D. Referring MD: Steven Rebolledo M.D. Medicines: Monitored Anesthesia Care Complications: No immediate complications. Estimated Blood Loss: Estimated blood loss: none. Procedure: Pre-Anesthesia Assessment: - Prior to the procedure, a History and Physicalwas performed, and patient medications and allergieswere reviewed. The patient is competent. The risks and benefits of the procedure and the sedation optionsand risks were discussed with the patient. Allquestions were answered and informed consent was obtained. Patient identification and proposed procedure were verified by the nurse in the procedure room. Mental Status Examination: alert and oriented. Airway Examination: normal oropharyngeal airway and neck mobility. Respiratory Examination: clear to auscultation. CV Examination: normal. Prophylactic Antibiotics: The patient does not requireprophylactic antibiotics. Prior Anticoagulants: The patient has taken no anticoagulant or antiplatelet agents. ASA Grade Assessment: I - A normal, healthy patient.After reviewing the risks and benefits, the patient was deemed in satisfactory condition to undergo the procedure. The anesthesia plan was to use moderate sedation / analgesia (conscious sedation).Immediately prior to administration of medications, the patient was re-assessed for adequacy to receive sedatives.The heart rate, respiratory rate, oxygen saturations, blood pressure, adequacy of pulmonary ventilation,and response to care were monitored throughout the procedure. The physical status of the patient was re-assessed after the procedure. - The risks and benefits of the procedure and the sedation options and risks were discussed with the patient. All questions were answered and informed consent was obtained. The benefits, risks and alternatives of theprocedure and sedation were discussed and informed consentwas obtained. All questions were answered. Please referto the signed informed consent document in the medical record. The scope was passed under direct vision.The Colonoscope was introduced through the anus and advanced to the the cecum, identified byappendiceal orifice and ileocecal valve. The colonoscopy was performed without difficulty. The patient tolerated the procedure well. The quality of the bowel preparation was excellent. The colonoscopy was performed without difficulty. The patient tolerated the procedure well. The quality of the bowel preparation was excellent. The quality of the bowel preparation was evaluated using the BBPS (BostonBowel Preparation Scale) with scores of: Right Colon = 3, Transverse Colon = 3 and Left Colon = 3 (entiremucosa seen well with no residual staining, smallfragments of stool or opaque liquid). The total BBPS score equals 9. The bowel preparation used was sodium phosphate via split dose instruction. Bowel prepwas administered using a split dose. Findings: A 3 mm polyp was found in the ascending colon. The polyp was sessile. The polyp was removed with a jumbo cold forceps. Resection andretrieval were complete. A few small-mouthed diverticula were found in the sigmoid colon. The exam was otherwise without abnormality. Impression: - One 3 mm polyp in the ascending colon, removedwith a jumbo cold forceps. Resected and retrieved. - Diverticulosis in the sigmoid colon. - The examination was otherwise normal. Recommendation: - Repeat colonoscopy in 5 years for surveillance. - Repeating colonoscopy in the future makes senseif the health status is very good at that time. Attending Participation: I personally performed the entire procedure. Electronically signed by Jared Chapa MD Jared Chapa M.D. 10/31/2021 1:13:21 PM Number of Addenda: 0 Note Initiated On: 10/31/2021 12:03 PM Scope In: Scope Out: us Jared Chapa MD ENDOSCOPY PROCEDURES Fin al Result * Serum Hepatitis C ab (04/16/2013 4:07 AM FINANCIAL SALES CONSULTANT) HCV ab NON-REACTI VE NON-REACTI VE HISTORICAL RESULTS Hepatitis signal to cutoff ratio 0.01 <1.00 HISTORICAL RESULTS Serum 04/16/2013 4:07 AM FINANCIAL SALES CONSULTANT Narrative HISTORICAL RESULTS - 04/17/2013 6:00 AM FINANCIAL SALES CONSULTANT Test performed at [facility] [place] [id number] [address] [id number] Director: SIVAN ERAZO DO,MPH Historical Provider LAB BLOOD ORDERABLES Ann van Result HISTORICAL RESULTS from Last 3 Months or Most Recently Relevant to Health Maintenance Insurance [facility] [employer] [facility] Advance Directives For more information, please contact: [phone] Documents on File Type Date Recorded Patient Health Psychologist Gladis garcia ADVANCE DIRECTIVE 03/22/2017 2:10 PM GUILLERMO SARMIENTO WILL * Full Code (Latest Code Status on File) Date Activated Date Inactivated Comments 10/31/2021 11:55 AM 10/31/2021 5:55 PM * Full Code Date Activated Date Inactivated Comments 06/26/2021 2:08 PM 06/27/2021 5:11 PM * Full Code Date Activated Date Inactivated Comments 04/02/2018 6:41 PM 04/03/2018 5:39 PM * Full Code Date Activated Date Inactivated Comments 02/25/2018 7:01 AM 02/25/2018 1:33 PM Care Teams Long Term Care Administrator Relationship Specialty Start Date End Date Roula Kenny MD [address] [place] [address] PCP - General Internal Medicine 03/17/25 Gareth Mccrary MD [address] [facility] [address] [place] [address] Consulting Physician Orthopedic Surgery 06/27/21 Sudhir Sheets MD PhD [address] [place] [address] Medical Oncologist/Cook Cold Meat Hematology and Oncology 04/23/24
--- OUTSIDE RECORDS SUMMARY | 2025-04-01 17:29 | XMS_ITS | Encounter Summary ---
Author Organization [facility] Address [address] [place] [address] Phone Care Team Providers Care Bilingual Teacher Assistant Name Role Phone Gareth Mccrary MD Unavailable [phone] Sudhir Sheets MD PhD Unavailable Roula Kenny MD Primary Care Provider [phone] Encounter Details Date Type Department Care Team (Late st Contact Info) Description 03/18/2025 Results Follow-Up [facility] Medicine Geriatric Medicine [address] [facility] [address] [place] [address] Roula Kenny MD [address] [place] [address] Hemoglobin A1c, Lipid panel, TSH, Additional followed-up results: 8 Social History Tobacco Use Types Packs/Day Years Used Date Smoking Tobacco: Never Cigarettes Smokeless Tobacco: Never Alcohol Use Standard Drinks/Week Comments Yes 2 [...] AM CDT Legal Sex Female 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 Gender Identity Female 08/06/2018 6:24 AM CDT Sexual Orientation Straight 08/06/2018 6: 24 AM CDT Occupation Industry Job Start Date Job End Date Retired Not on file Not on file Not on file documented as of this encounter Plan of Treatment Not on file documented as of this encounter Visit Diagnoses Not on filedocumented in this encounter Care Teams Bilingual Teacher Assistant Relationship Specialty Start Date End Date Roula Kenny MD [address] [place] [address] PCP - General Internal Medicine 03/17/25 Gareth Mccrary MD [address] [facility] [address] [place] [address] Consulting Physician Orthopedic Surgery 06/27/21 Sudhir Sheets MD PhD [address] [place] [address] Medical Oncologist/Environmental Compliance Manager Hematology and Oncology 04/23/24 documented as of this encounter
--- OUTSIDE RECORDS SUMMARY | 2025-04-01 17:29 | XMS_ITS | Encounter Summary ---
Author Organization [facility] Address [address] [place] [address] Phone Care Team Providers Care Attic Fans Mechanic Name Role Phone Gareth Mccrary MD Unavailable Sudhir Sheets MD PhD Unavailable [phone] Roula Kenny MD Primary Care Provider [phone] Encounter Details Date Type Department Care Team (Late st Contact Info) Description 04/01/2025 Telephone [facility] Medicine Geriatric Medicine [address] [facility] [address] [place] [address] Adelaide Gutierrez, SHASHI Social History Tobacco Use Types Packs/Day Years [...] AM CDT Legal Sex Female 11:35 PM PROJECT ENGINEERING DIRECTOR Gender Identity Female 08/06/2018 6:24 AM CDT Sexual Orientation Straight 08/06/2018 6 :24 AM CDT Occupation Industry Job Start Date Job End Date Retired Not on file Not on file Not on file documented as of this encounter Miscellaneous Notes * Telephone Encounter - Adelaide Gutierrez RN - 04/01/2025 9:22 AM PROJECT ENGINEERING DIRECTOR Ceci from [employer] reached out to see if we had received their medical clearance form they faxed yesterday. I advised her that we had and that there is a 24-48hr turn around on forms sent over. She verbalized understanding. Sending form to Efraín via [employer]. ECT ENGINEERING DIRECTOR documented in this encounter Plan of Treatment Not on file documented as of this encounter Visit Diagnoses Not on filedocumented in this encounter Care Teams Attic Fans Mechanic Relationship Specialty Start Date End Date Roula Kenny MD [address] [place] [address] PCP - General Internal Medicine 03/17/25 Gareth Mccrary MD [address] [facility] [address] [place] [address] Consulting Physician Orthopedic Surgery 06/27/21 Sudhir Sheets MD PhD [address] [place] [address] Medical Oncologist/Hairspring Fabrication Supervisor Hematology and Oncology 04/23/24 documented as of this encounter
--- OUTSIDE RECORDS SUMMARY | 2025-04-01 17:29 | XMS_ITS | Encounter Summary ---
Author Organization [facility] Address [address] [place] [address] Phone Care Team Providers Care Director Of Operations Support Name Role Phone Gareth Mccrary MD Unavailable Sudhir Sheets MD PhD Unavailable [phone] Roula Kenny MD Primary Care Provider [phone] Encounter Details Date Type Department Care Team (Late st Contact Info) Description 03/31/2025 Telephone [facility] Medicine Geriatric Medicine 10 [facility] [address] [place] [address] Roula Kenny MD [address] [place] [address] Social History Tobacco Use Types Packs/Day Years [...] CDT Legal Sex Female 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 The [address] [address] P: [phone] F: [phone] NCIAL SYSTEMS ANALYST documented in this encounter Plan of Treatment Not on file documented as of this encounter Visit Diagnoses Not on filedocumented in this encounter Care Teams Director Of Operations Support Relationship Specialty Start Date End Date Roula Kenny MD [address] [place] [address] PCP - General Internal Medicine 03/17/25 Gareth Mccrary MD [address] [address] [place] [address] Consulting Physician Orthopedic Surgery 06/27/21 Sudhir Sheets MD PhD [address] [place] [address] Medical Oncologist/Supervisor Plastics Hematology and Oncology 04/23/24 documented as of this encounter
--- OUTSIDE RECORDS SUMMARY | 2025-04-01 17:29 | XMS_ITS | Clinical Summary ---
Author Organization [facility] Address [address] [facility] [place] [address] Care Team Providers Care Ergonomics Technician Name Role Phone Unavailable Primary Care Provider Unavailabl e Source Comments [facility],non-owned Affiliates and Associated Physician Practices is amultiple site organization consisting of ambulatory clinics and hospital sitesin [place], [place], [place] and [place]. This disclosure is being madepursuant to the Care Everywhere program and may not contain all information available regarding this patient. Last updated 18.[facility] [employer] Social History Tobacco Use Types Packs/Day Years Used Date Smoking Tobacco: Never Assessed Comments Unknown Sex and Gender Information Value Date Recorded Sex Assigned at Female 07/21/2020 4:44 AM INSOLE RASPER Legal Sex Female 4:44 AM INSOLE RASPER Gender Identity Female 07/21/2020 4:44 AM INSOLE RASPER Sexual Orientation Not on file Plan of Treatment Health Maintenance Due Date Last Done Comments HEPATITIS C SCREENING 07/13/1963 DTAP/TDAP/TD VACCINES (1 - Tdap) 1965 PNEUMOCOCCAL VACCINE 50+ (1 of 1 - PCV) 1996 ZOSTER VACCINE (1 of 2) 1996 Respiratory Syncytial Virus (RSV) Vaccine Pt: or over 60 yrs (1 - 1-dose 75+ series) 2021 DEPRESSION SCREENING 05/13/2024 MEDICARE AWV CALENDAR YEAR 2024 COVID-19 VACCINE (2 - 2024- season) 2025 02/06/2021 INFLUENZA VACCINE (#1) 2025 4, 01/11/2023, 01/08/2021, Additional history exists BONE DENSITY TESTING Completed 12/06/2023, 05/16/2021, 05/02/2018 HEPATITIS B VACCINE Aged Out No longe r eligible based on patient's age to complete this topic HIB VACCINE Aged Out No longer eligi ble based on patient's age to complete this topic HPV VACCINE Aged Out No longer eligi ble based on patient's age to complete this topic MENINGOCOCCAL (Group B) VACCINE SHARED DECISION-MAKING Aged Out No longer eligible based on patient's age to complete this topic MENINGOCOCCAL GROUPS A/C/Y/W VACCINE Aged Out No longer eligible based on patient's age to complete this topic Insurance [employer] MEDICARE ADV
== END 2025-04-01 14:16 | disposition home or self-care (01) ==
LOC: ANHCARD 14:20
PROVIDERS: Visit Provider Podiatrist Foot & Ankle Surgery
DX: R94.31 Abnormal electrocardiogram [ECG] [EKG] (principal); R03.0 Elevated blood-pressure reading, without diagnosis of hypertension
CPT/HCPCS: 93005